=== PATIENT | male | born 1960 | race Caucasian/White ===

== ENCOUNTER 2019-03-21 00:39 | Emergency (ER) | payer OTHER ==
[2019-03-21] MEDS ORDERED: ONDANSETRON 4 MG/2 ML VIAL IVP STA (01:08)
[2019-03-21] MEDS ORDERED: PANTOPRAZOLE 40 MG/10 ML VIAL IVP STA (01:08)
[2019-03-21] MEDS ORDERED: SODIUM CHLORIDE 0.9% 1,000 ML IV STA (01:08)
[2019-03-21 01:22] LABS: Basophils % (A) 0 %; Eosinophils # (A) 0.1 k/uL (0-0.7); Eosinophils % (A) 1 %; HCT 37.8 % (39.0-53.0); HGB 12.5 gm/dL (13.0-17.5); Lymphocytes # (A) 1.2 k/uL (1.0-4.8); Lymphocytes % (A) 11 %; MCH 30.3 pg (25.0-35.0); MCHC 33.2 g/dL (31.0-37.0); MCV 91.2 fL (80.0-100.0); Mean Platelet Volume 6.8; Monocytes # (A) 0.6 k/uL (0-1.0); Monocytes % (A) 6 %; Neutrophils # (A) 9.2 k/uL (1.3-7.7); Neutrophils % (A) 82 %; Platelet Count 602 k/uL (150-450); RBC 4.14 m/uL (4.30-5.90); RDW 15.1 % (11.5-15.5); WBC 11.2 k/uL (3.8-10.6)
[2019-03-21 01:43] LABS: Albumin 2.1 g/dL (3.5-5.0); Calcium 7.7 mg/dL (8.4-10.2); Potassium 3.2 mmol/L (3.5-5.1); Total Bilirubin 0.3 mg/dL (0.2-1.3)
--- NOTE | 2019-03-21 01:43 | XR ---
EXAMINATION TYPE: XR chest 2V DATE OF EXAM: 03/21/2019 COMPARISON: NONE HISTORY: Abdominal pain TECHNIQUE: Frontal and lateral views of the chest are obtained. FINDINGS: Heart and mediastinum are normal. Lungs are clear of infiltrate. There is no pleural effus ion. Bony thorax is intact. Pulmonary vascularity is normal. IMPRESSION: Normal chest.
--- NOTE | 2019-03-21 01:46 | XR ---
EXAMINATION TYPE: XR KUB DATE OF EXAM: 03/21/2019 COMPARISON: NONE HISTORY: Abdominal pain TECHNIQUE: Single view FINDINGS: A single upright view was obtained. There is no evidence of free air. There are intestinal fluid levels in the mid abdomen. This could be some dilated small bowel loops. There is no sign of co nstipation. There are no pathologic calcifications over the kidneys. IMPRESSION: Distended gas-filled bowel in the mid abdomen that appears to be dilated small bowel with fluid levels. This could relate to partial obstruction or ileus. There is a relative lack of large b owel gas.
--- NOTE | 2019-03-21 02:33 | ED ---
General Adult HPI - General Chief complaint: Nausea/Vomiting/Diarrhea Stated complaint: Vomiting Time Seen by Provider: 03/21/19 00:55 Source: patient, family Mode of arrival: ambulatory Limitations: no limitations - History of Present Illness Initial comments: Patient is a 58-year-old male presenting to emergency Department with a chief complaint of nausea vomiting. Patient reports his been ongoing for about 2-3 months. He states the symptoms not related to by mouth intake. Patient also reports left upper quadrant abdominal pain and has a burning sensation. He states the pain comes and goes in waves. Patient denies any constipation or diarrhea. Patient denies any night sweats or chills. Patient denies any back pain, chest pain shortness of breath. Patient states that he is homeless and is looking for a warm bed and some food. Patient does report occasional alcohol intake and smoking marijuana. Patient denies hemoptysis or hematemesis. - Related Data Allergies Allergy/AdvReac Type Severity Reaction Status Date / Time No Known Allergies Allergy Verified 03/21/19 00:50 Review of Systems ROS Statement: Those systems with pertinent positive or pertinent negative responses have been documented in the HPI. ROS Other: All systems not noted in ROS Statement are negative. Past Medical History Past Medical History: Hearing Disorder / Deafness History of Any Multi-Drug Resistant Organisms: None Reported Past Surgical History: No Surgical Hx Reported Past Psychological History: No Psychological Hx Reported Smoking Status: Current every day smoker Past Alcohol Use History: Occasional Past Drug Use History: None Reported General Exam Limitations: no limitations General appearance: alert, in no apparent distress Head exam: Present: atraumatic, normocephalic, normal inspection Eye exam: Present: normal appearance, PERRL, EOMI Pupils: Present: normal accommodation ENT exam: Present: normal exam, normal oropharynx, mucous membranes dry, TM's normal bilaterally, normal external ear exam Neck exam: Present: normal inspection, full ROM Respiratory exam: Present: normal lung sounds bilaterally Cardiovascular Exam: Present: regular rate, normal rhythm, normal heart sounds GI/Abdominal exam: Present: soft, tenderness (Left upper quadrant). Absent: distended Extremities exam: Present: normal inspection, full ROM Back exam: Present: normal inspection, full ROM. Absent: CVA tenderness (R), CVA tenderness (L) Neurological exam: Present: alert, oriented X3 Psychiatric exam: Present: normal affect, normal mood Skin exam: Present: warm, dry, intact, normal color Course Vital Signs 03/21/19 03/21/19 00:44 03:23 Temperature 97.3 F L 97.8 F Pulse Rate 114 H 87 Respiratory 24 16 Rate Blood Pressure 100/65 112/68 O2 Sat by Pulse 100 99 Oximetry Medical Decision Making - Medical Decision Making Patient is a 58-year-old male presenting to emergency Department with a chief complaint of nausea and vomiting. On exam patient appears to be cold and is requesting a warm blanket. Patient reports he was outside for prolonged periods of time. He does have some left lower quadrant abdominal pain with a burning s ensation. This is increased over the last 1-2 days after he had nausea with some episodes of vomiting. Patient reports otherwise he is being without issues. He denies any night sweats fevers or chills. Patient is requesting some food. Patient given fluids, Protonix and Zofran. On reevaluation patient reports nausea has resolved. Patient was given fluid and not vomiting. Patient does have a white count I suspect this to be secondary to the vomiting. Patient is mildly hypokalemic which again suspect due to the vomiting. At this time patient will be discharged and given more information regarding homeless shelters. Strict return parameters were thoroughly discussed with patient was u nderstanding and agreeable. Case discussed with physician. - Lab Data Result diagrams: 03/21/19 01:15 03/21/19 01:15 Lab Results 03/21/19 03/21/19 Range/Units 01:15 01:15 WBC 11.2 H (3.8-10.6) k/uL RBC 4.14 L (4.30-5.90) m/uL Hgb 12.5 L (13.0-17.5) gm/dL Hct 37.8 L (39.0-53.0) % MCV 91.2 (80.0-100.0) fL MCH 30.3 (25.0-35.0) pg MCHC 33.2 (31.0-37.0) g/dL RDW 15.1 (11.5-15.5) % Plt Count 602 H (150-450) k/uL Neutrophils % 82 % Lymphocytes % 11 % Monocytes % 6 % Eosinophils % 1 % Basophils % 0 % Neutrophils # 9.2 H (1.3-7.7) k/uL Lymphocytes # 1.2 (1.0-4.8) k/uL Monocytes # 0.6 (0-1.0) k/uL Eosinophils # 0.1 (0-0.7) k/uL Basophils # 0.0 (0-0.2) k/uL Sodium 134 L (137-145) mmol/L Potassium 3.2 L (3.5-5.1) mmol/L Chloride 106 (98-107) mmol/L Carbon Dioxide 21 L (22-30) mmol/L Anion Gap 7 mmol/L BUN 22 H (9-20) mg/dL Creatinine 1.48 H (0.66-1.25) mg/dL Est GFR (CKD-EPI)AfAm 60 (>60 ml/min/1.73 sqM) Est GFR (CKD-EPI)NonAf 52 (>60 ml/min/1.73 sqM) Glucose 94 (74-99) mg/dL Calcium 7.7 L (8.4-10.2) mg/dL Total Bilirubin 0.3 (0.2-1.3) mg/dL AST 19 (17-59) U/L ALT 31 (21-72) U/L Alkaline Phosphatase 87 (38-126) U/L Total Protein 5.0 L (6.3-8.2) g/dL Albumin 2.1 L (3.5-5.0) g/dL Lipase 70 (23-300) U/L Disposition Clinical Impression: Nausea & vomiting Disposition: HOME SELF-CARE Condition: Stable Instructions (If sedation given, give patient instructions): Acute Nausea and Vomiting (ED) Additional Instructions: Please follow up with primary care. Please return to emergency department if symptoms worsen. Is patient prescribed a controlled substance at d/c from ED?: No Referrals: None,Stated [Primary Care Provider] - 1-2 days Time of Disposition: 03:45
[2019-03-21 03:24] VITALS: RESP 16; TEMP 97.8
[2019-03-21 04:43] VITALS: BP 124/79; PULSE 68
== END 2019-03-21 04:43 | disposition home or self-care (01) ==
LOC: EC 00:39
DX: R11.2 Nausea with vomiting, unspecified (principal); E87.6 Hypokalemia; R10.32 Left lower quadrant pain; R10.12 Left upper quadrant pain; F12.90 Cannabis use, unspecified, uncomplicated; H91.90 Unspecified hearing loss, unspecified ear; F17.200 Nicotine dependence, unspecified, uncomplicated; Z59.0 Homelessness
CPT/HCPCS: 36415; 80053; 83690; 85025; 71046; 74018; 99284; 96374; 96375; 96361 ×3; J2405; C9113

== ENCOUNTER 2019-03-21 07:31 | Observation (INO) | payer OTHER ==
[2019-03-21] MEDS ORDERED: SODIUM CHLORIDE 0.9% 500 ML 500 ML IV STA (07:40)
[2019-03-21] MEDS ORDERED: SODIUM CHLORIDE 0.9% 1,000 ML IV STA (07:40)
--- NOTE | 2019-03-21 07:45 | ED ---
General Adult HPI - General Chief complaint: Altered Mental Status Stated complaint: Altered Mental Time Seen by Provider: 03/21/19 07:31 Source: patient, EMS, RN notes reviewed, old records reviewed Mode of arrival: EMS Limitations: no limitations - History of Present Illness Initial comments: This is a 58-year-old male who was just released from this hospital approximately 2 or 3 hours prior to arrival was found crawling on the ground by a passerby. The patient apparently is homeless he was here earlier and discharged he was minimally responsive and shivering he was given Narcan with some questionable improvement in his mentation. He was brought in for evaluation no evidence trauma. No other modifying factors. Apparently patient got an argument with his roommate and was evicted earlier - Related Data Home Medications Medication Instructions Recorded Confirmed Aspirin EC [Ecotrin] 325 mg PO DAILY PRN 03/21/19 03/21/19 Allergies Allergy/AdvReac Type Severity Reaction Status Date / Time No Known Allergies Allergy Verified 03/21/19 11:09 Review of Systems ROS Statement: Those systems with pertinent positive or pertinent negative responses have been documented in the HPI. ROS Other: All systems not noted in ROS Statement are negative. Past Medical History Past Medical History: Hearing Disorder / Deafness History of Any Multi-Drug Resistant Organisms: None Reported Past Surgical History: No Surgical Hx Reported Past Psychological History: No Psychological Hx Reported Smoking Status: Current every day smoker Past Alcohol Use History: Occasional Past Drug Use History: None Reported General Exam - General Exam Comments Initial Comments: This a well-developed asthenic female who is awake alert still respond with shivering noted. Patient is demonstrating difficulty hearing Limitations: no limitations General appearance: alert, lethargic Head exam: Present: atraumatic, normocephalic, normal inspection Eye exam: Present: normal appearance, PERRL, EOMI. Absent: scleral icterus, conjunctival injection, periorbital swelling ENT exam: Present: mucous membranes dry, other (Poor dentition) Neck exam: Present: normal inspection, full ROM, other (No stridor JVD or bruits). Absent: tenderness, meningismus, lymphadenopathy Respiratory exam: Present: normal lung sounds bilaterally. Absent: respiratory distress, wheezes, rales, rhonchi, stridor Cardiovascular Exam: Present: regular rate, normal rhythm, normal heart sounds. Absent: systolic murmur, diastolic murmur, rubs, gallop, clicks GI/Abdominal exam: Present: soft, normal bowel sounds. Absent: distended, tenderness, guarding, rebound, rigid Rectal exam: Present: deferred Extremities exam: Present: full ROM, normal capillary refill, other (Nicotine stains noted on his fingers). Absent: tenderness, pedal edema, joint swelling, calf tenderness Back exam: Present: normal inspection Neurological exam: Present: alert, oriented X3, CN II-XII intact Psychiatric exam: Present: depressed, flat affect, suicidal ideation Skin exam: Present: warm, dry, intact, normal color. Absent: rash Course Vital Signs 03/21/19 03/21/19 03/21/19 07:33 08:22 09:00 Temperature 97.5 F L Pulse Rate 98 95 Respiratory 20 18 Rate Blood Pressure 115/93 113/71 100/70 O2 Sat by Pulse 100 100 100 Oximetry 03/21/19 03/21/19 09:30 10:31 Temperature Pulse Rate 91 Respiratory 18 Rate Blood Pressure 91/81 96/59 O2 Sat by Pulse 99 100 Oximetry Medical Decision Making - Medical Decision Making Patient did demonstrate evidence of dehydration and some mild hypothermia as well as urinary tract infection. Patient be admitted for IV therapy IV fluids. I did discuss the case with Dr. Henderson. - Lab Data Result diagrams: 03/21/19 07:48 03/21/19 07:48 Lab Results 03/21/19 03/21/19 03/21/19 Range/Units 07:48 07:48 07:48 WBC 13.7 H (3.8-10.6) k/uL RBC 3.88 L (4.30-5.90) m/uL Hgb 11.9 L (13.0-17.5) gm/dL Hct 36.2 L (39.0-53.0) % MCV 93.3 (80.0-100.0) fL MCH 30.7 (25.0-35.0) pg MCHC 32.9 (31.0-37.0) g/dL RDW 15.1 (11.5-15.5) % Plt Count 552 H (150-450) k/uL Neutrophils % 88 % Lymphocytes % 7 % Monocytes % 3 % Eosinophils % 0 % Basophils % 0 % Neutrophils # 12.1 H (1.3-7.7) k/uL Lymphocytes # 1.0 (1.0-4.8) k/uL Monocytes # 0.5 (0-1.0) k/uL Eosinophils # 0.0 (0-0.7) k/uL Basophils # 0.0 (0-0.2) k/uL Sodium 137 (137-145) mmol/L Potassium 4.1 (3.5-5.1) mmol/L Chloride 110 H (98-107) mmol/L Carbon Dioxide 17 L (22-30) mmol/L Anion Gap 10 mmol/L BUN 24 H (9-20) mg/dL Creatinine 1.54 H (0.66-1.25) mg/dL Est GFR (CKD-EPI)AfAm 57 (>60 ml/min/1.73 sqM) Est GFR (CKD-EPI)NonAf 49 (>60 ml/min/1.73 sqM) Glucose 69 L (74-99) mg/dL POC Glucose (mg/dL) (75-99) mg/dL POC Glu Utilization Review Specialist ID Calcium 7.7 L (8.4-10.2) mg/dL Magnesium 1.8 (1.6-2.3) mg/dL Total Bilirubin 0.4 (0.2-1.3) mg/dL AST 22 (17-59) U/L ALT 31 (21-72) U/L Alkaline Phosphatase 76 (38-126) U/L Ammonia 32 H (<30) umol/L Creatine Kinase 143 (55-170) U/L Total Protein 4.6 L (6.3-8.2) g/dL Albumin 1.9 L (3.5-5.0) g/dL Lipase 73 (23-300) U/L Urine Color Urine Appearance (Clear) Urine pH (5.0-8.0) Ur Specific [place] (1.001-1.035) Urine Protein (Negative) Urine Glucose (UA) (Negative) Urine Ketones (Negative) Urine Blood (Negative) Urine Nitrite (Negative) Urine Bilirubin (Negative) Urine Urobilinogen (<2.0) mg/dL Ur Leukocyte Esterase (Negative) Urine RBC (0-5) /hpf Urine WBC (0-5) /hpf Urine WBC Clumps (None) /hpf Urine Bacteria (None) /hpf Urine Mucus (None) /hpf Urine Opiates Screen (NotDetected) Ur Oxycodone Screen (NotDetected) Urine Methadone Screen (NotDetected) Ur Propoxyphene Screen (NotDetected) Ur Barbiturates Screen (NotDetected) U Tricyclic Antidepress (NotDetected) Ur Phencyclidine Scrn (NotDetected) Ur Amphetamines Screen (NotDetected) U Methamphetamines Scrn (NotDetected) U Benzodiazepines Scrn (NotDetected) Urine Cocaine Screen (NotDetected) U Marijuana (THC) Screen (NotDetected) Serum Alcohol <10 mg/dL 03/21/19 03/21/19 03/21/19 Range/Units 09:26 09:26 10:49 WBC (3.8-10.6) k/uL RBC (4.30-5.90) m/uL Hgb (13.0-17.5) gm/dL Hct (39.0-53.0) % MCV (80.0-100.0) fL MCH (25.0-35.0) pg MCHC (31.0-37.0) g/dL RDW (11.5-15.5) % Plt Count (150-450) k/uL Neutrophils % % Lymphocytes % % Monocytes % % Eosinophils % % Basophils % % Neutrophils # (1.3-7.7) k/uL Lymphocytes # (1.0-4.8) k/uL Monocytes # (0-1.0) k/uL Eosinophils # (0-0.7) k/uL Basophils # (0-0.2) k/uL Sodium (137-145) mmol/L Potassium (3.5-5.1) mmol/L Chloride (98-107) mmol/L Carbon Dioxide (22-30) mmol/L Anion Gap mmol/L BUN (9-20) mg/dL Creatinine (0.66-1.25) mg/dL Est GFR (CKD-EPI)AfAm (>60 ml/min/1.73 sqM) Est GFR (CKD-EPI)NonAf (>60 ml/min/1.73 sqM) Glucose (74-99) mg/dL POC Glucose (mg/dL) 73 L (75-99) mg/dL POC Glu Utilization Review Specialist ID Jezierski, [place] Calcium (8.4-10.2) mg/dL Magnesium (1.6-2.3) mg/dL Total Bilirubin (0.2-1.3) mg/dL AST (17-59) U/L ALT (21-72) U/L Alkaline Phosphatase (38-126) U/L Ammonia (<30) umol/L Creatine Kinase (55-170) U/L Total Protein (6.3-8.2) g/dL Albumin (3.5-5.0) g/dL Lipase (23-300) U/L Urine Color Light Red Urine Appearance Turbid (Clear) Urine pH 7.5 (5.0-8.0) Ur Specific [place] 1.015 (1.001-1.035) Urine Protein 2+ H (Negative) Urine Glucose (UA) Negative (Negative) Urine Ketones Negative (Negative) Urine Blood Small H (Negative) Urine Nitrite Negative (Negative) Urine Bilirubin Negative (Negative) Urine Urobilinogen <2.0 (<2.0) mg/dL Ur Leukocyte Esterase Large H (Negative) Urine RBC >182 H (0-5) /hpf Urine WBC >182 H (0-5) /hpf Urine WBC Clumps Many H (None) /hpf Urine Bacteria Many H (None) /hpf Urine Mucus Few H (None) /hpf Urine Opiates Screen Not Detected (NotDetected) Ur Oxycodone Screen Not Detected (NotDetected) Urine Methadone Screen Not Detected (NotDetected) Ur Propoxyphene Screen Not Detected (NotDetected) Ur Barbiturates Screen Not Detected (NotDetected) U Tricyclic Antidepress Not Detected (NotDetected) Ur Phencyclidine Scrn Not Detected (NotDetected) Ur Amphetamines Screen Not Detected (NotDetected) U Methamphetamines Scrn Not Detected (NotDetected) U Benzodiazepines Scrn Not Detected (NotDetected) Urine Cocaine Screen Not Detected (NotDetected) U Marijuana (THC) Screen Not Detected (NotDetected) Serum Alcohol mg/dL Disposition Clinical Impression: Urinary tract infection, Renal insufficiency, Dehydration, Hypothermia, Hearing deficit Disposition: ADMITTED IP TO THIS HOSP Condition: Fair Referrals: Werner Menendez, PAC [PHYSICIAN [facility] DEVELOPER] - 1-2 days
[2019-03-21 08:11] LABS: Basophils % (A) 0 %; Eosinophils % (A) 0 %; HCT 36.2 % (39.0-53.0); HGB 11.9 gm/dL (13.0-17.5); Lymphocytes % (A) 7 %; MCH 30.7 pg (25.0-35.0); MCHC 32.9 g/dL (31.0-37.0); MCV 93.3 fL (80.0-100.0); Mean Platelet Volume 7.4; Monocytes # (A) 0.5 k/uL (0-1.0); Monocytes % (A) 3 %; Neutrophils # (A) 12.1 k/uL (1.3-7.7); Neutrophils % (A) 88 %; Platelet Count 552 k/uL (150-450); RBC 3.88 m/uL (4.30-5.90); RDW 15.1 % (11.5-15.5); WBC 13.7 k/uL (3.8-10.6)
[2019-03-21 08:14] LABS: ALT 31 U/L (21-72); AST 22 U/L (17-59); African American GFR (CKD) 57 (>60 ml/min/1.73 sqM); Albumin 1.9 g/dL (3.5-5.0); Alcohol <10 mg/dL; Alkaline Phosphatase 76 U/L (38-126); Anion Gap 10 mmol/L; Blood Urea Nitrogen 24 mg/dL (9-20); Calcium 7.7 mg/dL (8.4-10.2); Carbon Dioxide 17 mmol/L (22-30); Chloride 110 mmol/L (98-107); Creatine Kinase 143 U/L (55-170); Glucose 69 mg/dL (74-99); Magnesium 1.8 mg/dL (1.6-2.3); Non-African American GFR(CKD) 49 (>60 ml/min/1.73 sqM); Potassium 4.1 mmol/L (3.5-5.1); Sodium 137 mmol/L (137-145); Total Bilirubin 0.4 mg/dL (0.2-1.3); Total Protein 4.6 g/dL (6.3-8.2)
[2019-03-21 09:48] LABS: Appearance,Urine Turbid (Clear); Bacteria,Urine Many /hpf; Bilirubin,Urine Negative (Negative); Blood,Urine Small (Negative); Color,Urine Light Red; Glucose,Urine (UA) Negative (Negative); Ketones,Urine Negative (Negative); Leukocyte Esterase,Urine Large (Negative); Mucus,Urine Few /hpf; Nitrite,Urine Negative (Negative); PH, Urine 7.5 (5.0-8.0); Protein,Urine 2+ (Negative); RBC,Urine >182 /hpf (0-5); Specific Gravity,Urine 1.015 (1.001-1.035); Urobilinogen,Urine <2.0 mg/dL (<2.0); WBC,Urine >182 /hpf (0-5)
[2019-03-21 09:50] LABS: Amphetamine Screen,Urine Not Detected (NotDetected); Barbiturate Screen,Urine Not Detected (NotDetected); Benzodiazepines Screen,Urine Not Detected (NotDetected); Cocaine Screen,Urine Not Detected (NotDetected); Methadone Screen, Urine Not Detected (NotDetected); Opiate Screen,Urine Not Detected (NotDetected); Oxycodone Screen, Urine Not Detected (NotDetected); Phencyclidine Screen,Urine Not Detected (NotDetected); Tricyclic Antidepressant,Urine Not Detected (NotDetected); Urn Cannabinoid Scrn Not Detected (NotDetected)
[2019-03-21 10:50] LABS: Glucose,Whole Blood 73 mg/dL (75-99)
[2019-03-21] MEDS ORDERED: ACETAMINOPHEN TAB 325 MG TAB PO PRN (11:05)
[2019-03-21] MEDS ORDERED: ONDANSETRON 4 MG/2 ML VIAL IVP PRN (11:05)
[2019-03-21] MEDS ORDERED: cefTRIAXone IN SWFI 1,000 MG/10 ML SYRINGE IVP STA (11:17)
[2019-03-21] MEDS ORDERED: NALOXONE 0.4 MG/ML 1 ML VIAL IV PRN (11:19)
--- NOTE | 2019-03-21 12:26 | P.HPIM ---
History of Present Illness H&P Date: 03/21/19 The patient is a hard of hearing 58-year-old male that presented to the ER after being found crawling on the ground by a passerby. The patient reports that he had fallen but had been too weak to get up, the patient reported that he was homeless and recently been kicked out of his current living situation by his roommate. The patient has reported URI symptoms such as runny nose sinus drainage and also reported on intermittently productive cough over the last 2 weeks , he also has had issues with reflux and vomiting, the patient had earlier been seen in the ER where he presented for nausea and vomiting and was found to be hypokalemic. He denied any chest pain or shortness of breath, denied any fevers, but reported ongoing chills and feeling cold, he denied any dysuria or flank pain but reported decreased oral intake, and that his urine was increasingly dark. In the ER he had a white count of 13.9 hemoglobin of 12 platelet of 552, creatinine 1.54, serum bicarb 17, serum lipase 73 total albumin 1.9. urinalysis large leukoesterase positive, urine WBCs greater than 182, urine bacteria. Chest x-ray was normal, EKG showed sinus rhythm with PACs without suggestion of acute ischemia. UDS was negative Past Medical History Past Medical History: Hearing Disorder / Deafness History of Any Multi-Drug Resistant Organisms: None Reported Past Surgical History: No Surgical Hx Reported Past Psychological History: No Psychological Hx Reported Smoking Status: Current every day smoker Past Alcohol Use History: Occasional Past Drug Use History: None Reported Medications and Allergies Home Medications Medication Instructions Recorded Confirmed Type Aspirin EC [Ecotrin] 325 mg PO DAILY PRN 03/21/19 03/21/19 History Allergies Allergy/AdvReac Type Severity Reaction Status Date / Time No Known Allergies Allergy Verified 03/21/19 11:09 Physical Exam Vitals: Vital Signs Temp Pulse Resp BP Pulse Ox 03/21/19 10:31 91 18 96/59 100 03/21/19 09:30 91/81 99 03/21/19 09:00 100/70 100 03/21/19 08:22 97.5 F L 95 18 113/71 100 03/21/19 07:33 98 20 115/93 100 Intake and Output 03/20/19 03/21/19 03/21/19 22:59 06:59 14:59 Other: Weight 54.431 kg Constitutional: Malnourished, hard of hearing, conversant , pleasant cold to touch hypothermic, Eyes: Anicteric sclerae, moist conjunctiva, no lid-lag, PERRLA ENMT: NC/AT,Oropharynx clear, no erythema, exudates, poor oral dentition Neck:Supple, FROM, no masses, or JVD, No carotid bruits; No thyromegaly Lungs: Clear to auscultation, Clear to percussion, Normal respiratory effort, no accessory muscle use Cardiovascular: Heart regular in rate and rhythm, No murmurs, gallops, or rubs no peripheral edema Abdominal: Soft Nontender, nom distended, no guarding, no rebound or rigidity, Normoactive bowel sounds No hepatomegaly, No splenomegaly, No palpable mass No abdominal wall hernia noted Skin: Normal temperature, tone, texture, turgor, No induration No subcutaneous nodules, No rash, lesions, No ulcers Extremities:No digital cyanosis No clubbing, Pedal pulses intact and symmetrical Radial pulses intact and symmetrical Normal gait and station, No calf tenderness Psychiatric: Alert and oriented to person, place and time, Appropriate affect Intact judgement Neuro: Muscles Strength 5/5 in all 4 extremities, Sensation to light touch grossly present throughout, Cranial nerves II-XII grossly intact. No focal sensory deficits Results CBC & Chem 7: 03/21/19 07:48 03/21/19 07:48 Labs: Abnormal Lab Results - Last 24 Hours (Table) 03/21/19 03/21/19 03/21/19 Range/Units 07:48 07:48 07:48 WBC 13.7 H (3.8-10.6) k/uL RBC 3.88 L (4.30-5.90) m/uL Hgb 11.9 L (13.0-17.5) gm/dL Hct 36.2 L (39.0-53.0) % Plt Count 552 H (150-450) k/uL Neutrophils # 12.1 H (1.3-7.7) k/uL Chloride 110 H (98-107) mmol/L Carbon Dioxide 17 L (22-30) mmol/L BUN 24 H (9-20) mg/dL Creatinine 1.54 H (0.66-1.25) mg/dL Glucose 69 L (74-99) mg/dL POC Glucose (mg/dL) (75-99) mg/dL Calcium 7.7 L (8.4-10.2) mg/dL Ammonia 32 H (<30) umol/L Total Protein 4.6 L (6.3-8.2) g/dL Albumin 1.9 L (3.5-5.0) g/dL Urine Protein (Negative) Urine Blood (Negative) Ur Leukocyte Esterase (Negative) Urine RBC (0-5) /hpf Urine WBC (0-5) /hpf Urine WBC Clumps (None) /hpf Urine Bacteria (None) /hpf Urine Mucus (None) /hpf 03/21/19 03/21/19 Range/Units 09:26 10:49 WBC (3.8-10.6) k/uL RBC (4.30-5.90) m/uL Hgb (13.0-17.5) gm/dL Hct (39.0-53.0) % Plt Count (150-450) k/uL Neutrophils # (1.3-7.7) k/uL Chloride (98-107) mmol/L Carbon Dioxide (22-30) mmol/L BUN (9-20) mg/dL Creatinine (0.66-1.25) mg/dL Glucose (74-99) mg/dL POC Glucose (mg/dL) 73 L (75-99) mg/dL Calcium (8.4-10.2) mg/dL Ammonia (<30) umol/L Total Protein (6.3-8.2) g/dL Albumin (3.5-5.0) g/dL Urine Protein 2+ H (Negative) Urine Blood Small H (Negative) Ur Leukocyte Esterase Large H (Negative) Urine RBC >182 H (0-5) /hpf Urine WBC >182 H (0-5) /hpf Urine WBC Clumps Many H (None) /hpf Urine Bacteria Many H (None) /hpf Urine Mucus Few H (None) /hpf Assessment and Plan Assessment: Sepsis Possible urinary tract infection Acute kidney injury with metabolic acidosis Hypothermia severe calorie malnutrition Smoking Hearing-impaired Plan: The patient is admitted anticipated greater than 2 midnight stay with concern for possible sepsis due to UTI in the patient and presented here after being found down and was weak and unable to get up. He's also have a mild leukocytosis of 13.7 and a grossly abnormal urinalysis he also has acute kidney injury likely prerenal due to dehydration, he was given a liter normal saline bolus and started on empiric IV antibiotics with Rocephin, will check a CT of his head as there were reports of confusion Despite the patient being oriented 3 on my physical exam. We'll order a chest x-ray, blood cultures and urine culture. We'll resume him on high protein diet given the patient's severe protein calorie malnutrition and consult dietitian, we'll also consult PTOT for the patient's weakness. Instructed the ER to place the patient in the bear hugger as he was cold to touch and was hypothermic. will continue to follow his clinical course prophylaxis heparin and Protonix CODE STATUS full code Anticipated discharge: 2-[address]: penitentiary or homeless nursing home Discussed care with the: Patient an ER physician
--- NOTE | 2019-03-21 12:34 | CT ---
EXAMINATION TYPE: CT brain wo con DATE OF EXAM: 03/21/2019 COMPARISON: NONE HISTORY: confusion CT DLP: 1070.4 mGycm Automated exposure control for dose reduction was used. FINDINGS: There are mild, generalized changes of sulcal prominence and ventriculomegaly, compatible with atroph ic change. There is diffuse periventricular white matter lucency, compatible with chronic white matte r ischemic change. There is no acute focal lesion, mass effect or midline shift identified. I do not see evidence of intracranial blood. Visualized portions of the paranasal sinuses and mastoids are clear. The bony calvarium is intact. IMPRESSION: 1. NO ACUTE INTRACRANIAL ABNORMALITY. 2. MILD ATROPHIC CHANGE. 3. CHRONIC WHITE MATTER ISCHEMIC
--- NOTE | 2019-03-21 12:47 | XR ---
EXAMINATION TYPE: XR chest 1V DATE OF EXAM: 03/21/2019 HISTORY: sepsis. REFERENCE: Previous study dated 03/21/2019. FINDINGS: Lung volumes are prominent. There are mild increased markings, unchanged from previous. The heart is not enlarged. Pleural spaces are clear. IMPRESSION: PLEASE CORRELATE FOR COPD.
[2019-03-21] MEDS: HEPARIN SODIUM,PORCINE 5,000 UNIT/ML 1 ML VIAL SQ SCH (20:34)
[2019-03-22] MEDS: HEPARIN SODIUM,PORCINE 5,000 UNIT/ML 1 ML VIAL SQ SCH (07:52)
[2019-03-22] MEDS: PANTOPRAZOLE 40 MG TABLET PO SCH (07:52)
[2019-03-22 09:22] LABS: Calcium 7.6 mg/dL (8.4-10.2); Potassium 3.2 mmol/L (3.5-5.1)
[2019-03-22 09:35] LABS: Basophils % (A) 0 %; Eosinophils # (A) 0.1 k/uL (0-0.7); Eosinophils % (A) 1 %; HGB 11.6 gm/dL (13.0-17.5); Lymphocytes # (A) 1.1 k/uL (1.0-4.8); Lymphocytes % (A) 13 %; MCV 93.9 fL (80.0-100.0); Mean Platelet Volume 7.3; Monocytes # (A) 0.3 k/uL (0-1.0); Monocytes % (A) 4 %; Neutrophils # (A) 7.2 k/uL (1.3-7.7); Neutrophils % (A) 82 %; Platelet Count 530 k/uL (150-450); RBC 3.73 m/uL (4.30-5.90); RDW 15.1 % (11.5-15.5); WBC 8.8 k/uL (3.8-10.6)
[2019-03-22] MEDS ORDERED: POTASSIUM CHLORIDE ER 20 MEQ TAB.ER PO STA (11:03)
[2019-03-22 11:09] VITALS: BMI 16.6
--- NOTE | 2019-03-22 14:42 | P.CN ---
Psychiatric Consult - . Consult date: 03/22/19 Consult:: IDENTIFYING DATA: This patient is a 58-year-old single male admitted to medicine service for evaluation of confusion and weakness. The hospitalist consult to psychiatry for evaluation of visual and auditory hallucinations. HISTORY OF PRESENT ILLNESS: I reviewed the medical record and attempted to interview the patient. He has hearing impaired and was very difficult to interview. He alleged that he came to Hospital because he was "feeling weak." He gave inconsistent responses to questions. Although the record indicates that he is homeless, he alleged that he owns a home. He does not work and alleges he does not receive Social Security but has an income. He talked about "owning a bank." He also talked about having been treated for alcohol problems in the past but also denies that he uses alcohol. PAST PSYCHIATRIC HISTORY: He denies past psychiatric hospitalizations. I spoke with the community mental health liaison from the psychiatric unit. According to their record she was admitted to our unit in August 2005. We were unable to obtain records from this hospitalization. He did not keep his appointments with community hospital and they have no assessment information. The records only indicate that he has history of alcohol use problems. He denied that he been treated by mental health professionals such as a therapist, counselor, social media marketer, psychologist or psychiatrist. PAST MEDICAL HISTORY: Hearing impairment ALLERGIES: NO KNOWN DRUG ALLERGIES. SUBSTANCE USE HISTORY: He apparently has a history of alcohol use disorder but during our interview he denied use of alcohol and gave a inconsistent history of alcohol use and alcohol use problems. FAMILY PSYCHIATRIC/SUBSTANCE USE HISTORY: He would not talk about his family history. SOCIAL HISTORY: His born in [place] allegedly to an intact family. He has 1 sister. 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 He is currently unemployed. He is single and would not answer whether he has children. MENTAL STATUS EXAM: He presented as a thin disheveled appearing male with long unkempt hair. He is laying in bed. He did not cooperate with interview. He made eye contact and had difficulty concentrating interview. The severity was hearing impairment interfered with him understanding questions. He had a blunted but bright facial expression. He was alert and oriented to person, place and time. He showed psychomotor retardation but no abnormal movements. His speech was spontaneous with decreased rate but normal volume. His affect was stable and appropriate. He denied suicidal ideation, wishes and homicidal ideation. He was guarded but did not expressed feeling clear paranoid ideation or ideas reference. He alleged that he owes several ba s medical source of his income. He denied auditory, visual or olfactory hallucinations. I attempted to perform a formal mental status exam. He knew the month and the year. He would not cooperate with the remainder of the examination. He was essentially untestable. IMPRESSIONS:He is a 58-year-old man with a moderately severe hearing impairment. The hospitalist consult psychiatry to evaluate him for auditory or visual hallucinations. He was difficult interview due to the hearing impairment. He is guarded and gave contradictory answers to questions. He would not cooperate with much of the examination. He expressed some grandiosity but did not described paranoid delusions and did not appear to be responding to internal stimuli. I suspect that he is cognitively impaired and most likely has a history of alcohol use problems. He appears to be a vulnerable adult but does not require acute psychiatric services at this time. DIAGNOSIS: Acute confusional state, rule out developmental disability, rule out neurocognitive disorder, alcohol use disorder (provisional) PLAN: There is no indication for transfer psychiatric in this time. Social work to identify a family or friend who may provide additional information to clarify his history. Thank you for this consult. 03/22/19 14:16
--- NOTE | 2019-03-22 19:03 | P.PN ---
Subjective Principal diagnosis: Reason for admission: Generalized weakness, UTI, dehydration, acute kidney injury Chart was reviewed and patient was interviewed and examined. Patient is a poor historian and very hard of hearing his history providing is limiting Patient is homeless and apparently he was admitted with generalized weakness fou nd to have UTI acute renal failure and was started on ceftriaxone IV fluids. Currently patient was found ambulating in the room went to the bathroom by himself took shower came back to the bed. He did not have any significant complaints. He states that his chest pain shortness of breath headache or numbness in his feet or any discomfort. No diarrhea nausea or vomiting. He appears very thin and emaciated Evaluation included CT of the brain showed chronic ischemic changes, chest x- ray, basic blood work that was notable for massive pyuria hematuria elevated creatinine. His albumin of only 1.9. Per nursing staff and his roommate patient been talking to himself and and possibly. 2-2 invisible people in the room. When asked patient states that he does not have any visual or audible hallucinations. He doesn't appear frightened or scared. Objective - Vital Signs Vital signs: Vital Signs Temp 98.0 F 03/22/19 05:15 Pulse 85 03/22/19 05:15 Resp 18 03/22/19 05:15 BP 108/69 03/22/19 05:15 Pulse Ox 99 03/22/19 05:15 Intake & Output 03/21/19 03/22/19 03/22/19 18:59 06:59 18:59 Intake Total 540 1900 Balance 540 1900 Weight 54.431 kg Intake: Oral 540 1900 Other: # Voids 4 - Constitutional General appearance: Present: disheveled, no acute distress, thin - EENT EENT Comment(s): Patient has some gaze provoked Most in eye oscillations looking in both sides. No diplopia no nystagmus at rest. Eyes: Present: PERRLA, poor dentition ENT: Present: hard of hearing, normal oropharynx - Neck Neck: Absent: lymphadenopathy - Respiratory Respiratory: right: CTA - Cardiovascular Heart sounds: normal: S1, S2 - Gastrointestinal General gastrointestinal: Present: normal bowel sounds, soft. Absent: organomegaly, tenderness - Neurologic Neurologic Comment(s): General nurse and examination is notable for nystagmus as mentioned above. Extraocular movements are otherwise intact. Nystagmus is gaze evoked. He denies any facial asymmetry and tongue protrudes in midline speech is fluent. He is very hard of hearing. He does complain of tinnitus. Motor strength is 5 out of 5 in upper and lower extremities and there is no rigidity or tremor or involuntary movements. Patellar reflexes are 1+ and symmetrical. There is no ankle clonus. Reflexes blunted bilateral. He possibly has diminished sensitivity to light touch and pinprick in lower extremities. Cerebellar: Finger to nose and heel to smith are intact and there is no vertigo and Romberg is negative Neurologic: Absent: focal deficits - Labs CBC & Chem 7: 03/22/19 08:30 12 08:30 Labs: Abnormal Lab Results - Last 24 Hours (Table) 03/22/19 03/22/19 Range/Units 08:30 08:30 RBC 3.73 L (4.30-5.90) m/uL Hgb 11.6 L (13.0-17.5) gm/dL Hct 35.0 L (39.0-53.0) % Plt Count 530 H (150-450) k/uL Potassium 3.2 L (3.5-5.1) mmol/L Chloride 114 H (98-107) mmol/L Carbon Dioxide 21 L (22-30) mmol/L Calcium 7.6 L (8.4-10.2) mg/dL Microbiology - Last 24 Hours (Table) 03/21/19 09:26 Urine Culture - Preliminary Urine,Voided - Imaging and Cardiology CT Scan - head: report reviewed, image reviewed Assessment and Plan Assessment: 1. Acute kidney injury and dehydration next the patient received hydration and creatinine output has improved electrolytes stable X 2. Urinary tract infection Possible urinary hematuria Treated with ceftriaxone Urine cultures no growth to date Check postvoiding residuals Patient largely asymptomatic without any CVA tenderness febrile and viable cell count normal today, no imaging for now Repeat UA once infection treated to assure clearance of pyuria and RBCs 3. Severe protein calorie malnutrition With this muscle weight and low albumin Dietitian to evaluate Doing possibility please evoked nystagmus and no presence of any medications for this we'll check his B12, thiamine and V6 level #4. Possible gaze evoked nystagmus CT of the head shows chronic ischemic changes Patient does not have any other focal neurological deficits We'll check vitamin levels An 80 medications Denies drugs or alcohol use although this cannot be completely excluded May consider MRI 5. Debility PTOT Will need placement 6. Possible hallucinations Patient denies any auditory or visual hallucinations Even at present currently not frightening for the patient hence may not needs psychiatry consultation We will continue to observe and reevaluate in this We will need to more insight and improved his past medical history possible
[2019-03-22 22:53] VITALS: RESP 18
[2019-03-23] MEDS: HEPARIN SODIUM,PORCINE 5,000 UNIT/ML 1 ML VIAL SQ SCH ×2 (01:08→08:50)
[2019-03-23 05:03] VITALS: BP 106/75; PULSE 61; TEMP 96.9
[2019-03-23] MEDS: PANTOPRAZOLE 40 MG TABLET PO SCH (08:50)
--- NOTE | 2019-03-23 09:45 | P.DS ---
Providers Date of admission: 03/21/19 11:28 Expected date of discharge: 03/23/19 Attending physician: Eugenio Henderson MD Consults: 03/22/19 13:07 Consult Physician Routine Consulting Provider: Milton John Consult Reason/Comments: visual/auditory hallucinations Do you want consulting provider notified?: Already Contacted Primary care physician: Stated None Hospital Course: 58-year-old male that presented to the ER after being found crawling on the ground by a passerby. Apparently patient had fallen but had been too weak to get up, the patient reported that he was homeless and recently been kicked out of his current living situation by his roommate. The patient has reported URI symptoms including runny nose sinus drainage and also reported intermittently productive cough over the last 2 weeks , he also has had issues with reflux and vomiting, the patient had earlier been seen in the ER where he presented for nausea and vomiting and was found to be hypokalemic. He denied any chest pain or shortness of breath, denied any fevers, but reported ongoing chills and feeling cold, he denied any dysuria or flank pain but reported decreased oral intake, and that his urine was increasingly dark. In the ER he had a white count of 13.9 hemoglobin of 12 platelet of 552, creatinine 1.54, serum bicarb 17, serum lipase 73 total albumin 1.9. urinalysis large leukoesterase positive, urine WBCs greater than 182, urine bacteria. Chest x-ray was normal, EKG showed sinus rhythm with PACs without suggestion of acute ischemia. UDS was negative, alcohol negative. Patient was admitted, started on IV fluids, was started on ceftriaxone for UTI and sepsis. Blood cultures obtained and remained negative until the time of discharge. Urine cultures growing gram-negative bacilli at the time of this report. Patient has remained afebrile throughout the hospitalization. Potassium was replaced. Due to questionable hallucinations he was seen by psychiatry who did not recommend inpatient psychiatric admission. Case was discussed with care management in regards to the patient's homelessness, care management who advised that he will be given some resources on housing in the community. Time for discharge 35 minutes Patient Condition at Discharge: Fair Plan - Discharge Summary Discharge Rx Participant: No New Discharge Prescriptions: New Cefdinir [Omnicef] 300 mg PO Q12HR 7 Days #14 capsule Acetaminophen Tab [Tylenol] 650 mg PO Q6HR PRN tab PRN Reason: Mild Pain Or Fever > 100.5 Continue Aspirin EC [Ecotrin] 325 mg PO DAILY PRN PRN Reason: Pain Discharge Medication List Aspirin EC [Ecotrin] 325 mg PO DAILY PRN 03/21/19 [History] Acetaminophen Tab [Tylenol] 650 mg PO Q6HR PRN tab 03/23/19 [Rx] Cefdinir [Omnicef] 300 mg PO Q12HR 7 Days #14 capsule 03/23/19 [Rx] Follow up Appointment(s)/Referral(s): Werner Menendez, CASEY [PHYSICIAN EVENING OR NIGHT NURSE SUPERVISOR] - 1-2 days
== END 2019-03-23 12:24 | disposition home or self-care (01) ==
LOC: EC 07:31 → 4MS4W 11:28
PROVIDERS: ADMIT Family Medicine; ATTEND Family Medicine
DX: N39.0 Urinary tract infection, site not specified (principal); E86.0 Dehydration; T68.XXXA Hypothermia, initial encounter; E43 Unspecified severe protein-calorie malnutrition; N17.9 Acute kidney failure, unspecified; E87.2 Acidosis; H55.00 Unspecified nystagmus; H91.90 Unspecified hearing loss, unspecified ear; I49.1 Atrial premature depolarization; B96.89 Other specified bacterial agents as the cause of diseases classified elsewhere; R41.0 Disorientation, unspecified; I67.82 Cerebral ischemia; G31.9 Degenerative disease of nervous system, unspecified; R31.9 Hematuria, unspecified; H93.19 Tinnitus, unspecified ear; R53.81 Other malaise; F17.200 Nicotine dependence, unspecified, uncomplicated; Z59.0 Homelessness; Z79.82 Long term (current) use of aspirin; X31.XXXA Exposure to excessive natural cold, initial encounter
CPT/HCPCS: 96372 ×2; 96376; 96361; 96365; 99285; 36415; 93005; 97161; 92523; 84207; 84425; 80053; 80048; 82607; 82140; 82550; 83605; 83690; 83735; 85025 ×2; 81001; 87040; 80306; 80320; 87086; 87077; 87186; 71045; 70450; G0378 ×3; J1644 ×2; J0696 ×2

== ENCOUNTER 2019-04-16 21:27 | Inpatient (IN) | payer OTHER ==
[2019-04-16] MEDS ORDERED: SODIUM CHLORIDE 0.9% 1,000 ML IV STA (21:43)
--- NOTE | 2019-04-16 21:44 | ED ---
Weakness HPI - General Source: patient, EMS Mode of arrival: EMS Limitations: no limitations <Randell Baez - Last Filed: 04/16/19 21:44> <Laxmi Riddle - Last Filed: 04/18/19 04:41> - General Chief complaint: Nausea/Vomiting/Diarrhea Stated complaint: Weakness - History of Present Illness Initial comments: Marco A is a 58-year-old male who is brought to the ER today for evaluation of nausea, vomiting, dehydration and altered mental status. On arrival the patient is noted to be vomiting liquid vomitus. He is in no acute pain. He offers no meaningful history. When asked about his symptoms the patient states that he got lethal injection and he went to his legs. (Laxmi Riddle) - Related Data Home Medications Medication Instructions Recorded Confirmed Unable To Assess [Unable to Assess] 04/17/19 04/17/19 Allergies Allergy/AdvReac Type Severity Reaction Status Date / Time No Known Allergies Allergy Verified 04/17/19 09:56 Review of Systems ROS Other: All systems not noted in ROS Statement are negative. <Randell Baez - Last Filed: 04/16/19 21:44> ROS Other: All systems not noted in ROS Statement are negative. <Laxmi Riddle - Last Filed: 04/18/19 04:41> ROS Statement: Those systems with pertinent positive or pertinent negative responses have been documented in the HPI. Past Medical History Past Medical History: Chest Pain / Angina, Hearing Disorder / Deafness Additional Past Medical History / Comment(s): patient a poor historian History of Any Multi-Drug Resistant Organisms: None Reported Past Surgical History: No Surgical Hx Reported, Cholecystectomy Additional Past Surgical History / Comment(s): patient states he had a procedure in the 80's on his stomach because "food would get stuck" Past Anesthesia/Blood Transfusion Reactions: No Reported Reaction Additional Past Anesthesia/Blood Transfusion Reaction / Comment(s): patient poor historian Past Psychological History: No Psychological Hx Reported Smoking Status: Current every day smoker Past Alcohol Use History: Occasional Past Drug Use History: None Reported <Randell Baez - Last Filed: 04/16/19 21:44> General Exam Limitations: no limitations <Randell Baez - Last Filed: 04/16/19 21:44> <Laxmi Riddle - Last Filed: 04/18/19 04:41> - General Exam Comments Initial Comments: Physical Exam GENERAL: Disheveled appearance HENT: Normocephalic, Atraumatic. EYES: PERRL, EOMI PULMONARY: Unlabored respirations. No audible rales rhonchi or wheezing was noted. CARDIOVASCULAR: Tachycardic regular ABDOMEN: Normoactive bowel sounds, no distention, no tenderness to palpation SKIN: Skin is dry and pale : Deferred NEUROLOGIC: Oriented to self only Seems to be hallucinating Moving all extremities MUSCULOSKELETAL: Diffuse atrophy 2+ pitting edema bilateral lower extremities PSYCHIATRIC: Appears to be hallucinating (Laxmi Riddle) Course Vital Signs 04/16/19 04/16/19 04/16/19 21:30 23:46 23:52 Temperature 97.8 F Pulse Rate 56 L 89 Pulse Rate [ Pulse Oximetery ] Respiratory 18 18 Rate Blood Pressure 85/67 88/57 Blood Pressure [Right Arm] O2 Sat by Pulse 99 98 98 Oximetry 04/17/19 04/17/19 00:50 01:08 Temperature 98.4 F Pulse Rate 78 Pulse Rate [ 98 Pulse Oximetery ] Respiratory 18 17 Rate Blood Pressure 90/55 Blood Pressure 92/57 [Right Arm] O2 Sat by Pulse 98 99 Oximetry EKG Findings - EKG Comments: EKG Findings:: EKG was obtained due to tachycardia, EKG was obtained at 2229, rate is 104 rhythm is sinus tachycardia, normal axis, normal intervals, OK 128, QRS 92, QTc is [address] elevations or depressions no evidence of acute ischemia or infarction. <Laxmi Riddle - Last Filed: 04/18/19 04:41> Medical Decision Making - Lab Data Result diagrams: 04/17/19 05:50 04/17/19 05:50 <Laxmi Riddle - Last Filed: 04/18/19 04:41> - Medical Decision Making Patient was seen and evaluated upon arrival history and physical exam were obtained from patient and review of medical record as patient seems to be altered at this time with no focal neurologic deficits Labs and IVF ordered Patient received IV resuscitation. BP remained low but patient awake, alert, still seems to be hallucinating Patient to be admitted for IVF, psych consulted for evaluation (Laxmi Riddle) - Lab Data Lab Results 04/16/19 04/16/19 04/16/19 Range/Units 22:12 22:12 22:12 WBC 10.1 (3.8-10.6) k/uL RBC 4.27 L (4.30-5.90) m/uL Hgb 13.1 (13.0-17.5) gm/dL Hct 40.2 (39.0-53.0) % MCV 94.1 (80.0-100.0) fL MCH 30.6 (25.0-35.0) pg MCHC 32.5 (31.0-37.0) g/dL RDW 15.7 H (11.5-15.5) % Plt Count 365 (150-450) k/uL Neutrophils % 85 % Lymphocytes % 11 % Monocytes % 3 % Eosinophils % 1 % Basophils % 0 % Neutrophils # 8.6 H (1.3-7.7) k/uL Lymphocytes # 1.1 (1.0-4.8) k/uL Monocytes # 0.3 (0-1.0) k/uL Eosinophils # 0.1 (0-0.7) k/uL Basophils # 0.0 (0-0.2) k/uL PT (9.0-12.0) sec INR (<1.2) APTT (22.0-30.0) sec Sodium 134 L (137-145) mmol/L Potassium 3.3 L (3.5-5.1) mmol/L Chloride 108 H (98-107) mmol/L Carbon Dioxide 23 (22-30) mmol/L Anion Gap 3 mmol/L BUN 23 H (9-20) mg/dL Creatinine 1.07 (0.66-1.25) mg/dL Est GFR (CKD-EPI)AfAm 89 (>60 ml/min/1.73 sqM) Est GFR (CKD-EPI)NonAf 77 (>60 ml/min/1.73 sqM) Glucose 90 (74-99) mg/dL Plasma Lactic Acid Angus 1.6 (0.7-2.0) mmol/L Calcium 7.4 L (8.4-10.2) mg/dL Phosphorus 3.2 (2.5-4.5) mg/dL Magnesium 1.6 (1.6-2.3) mg/dL Total Bilirubin 0.6 (0.2-1.3) mg/dL AST 30 (17-59) U/L ALT 27 (4-49) U/L Alkaline Phosphatase 94 (38-126) U/L Creatine Kinase 76 (55-170) U/L Troponin I (0.000-0.034) ng/mL Total Protein 4.2 L (6.3-8.2) g/dL Albumin 1.6 L (3.5-5.0) g/dL TSH 8.840 H (0.465-4.680) mIU/L 04/16/19 04/16/19 Range/Units 22:12 22:12 WBC (3.8-10.6) k/uL RBC (4.30-5.90) m/uL Hgb (13.0-17.5) gm/dL Hct (39.0-53.0) % MCV (80.0-100.0) fL MCH (25.0-35.0) pg MCHC (31.0-37.0) g/dL RDW (11.5-15.5) % Plt Count (150-450) k/uL Neutrophils % % Lymphocytes % % Monocytes % % Eosinophils % % Basophils % % Neutrophils # (1.3-7.7) k/uL Lymphocytes # (1.0-4.8) k/uL Monocytes # (0-1.0) k/uL Eosinophils # (0-0.7) k/uL Basophils # (0-0.2) k/uL PT 12.0 (9.0-12.0) sec INR 1.1 (<1.2) APTT 27.3 (22.0-30.0) sec Sodium (137-145) mmol/L Potassium (3.5-5.1) mmol/L Chloride (98-107) mmol/L Carbon Dioxide (22-30) mmol/L Anion Gap mmol/L BUN (9-20) mg/dL Creatinine (0.66-1.25) mg/dL Est GFR (CKD-EPI)AfAm (>60 ml/min/1.73 sqM) Est GFR (CKD-EPI)NonAf (>60 ml/min/1.73 sqM) Glucose (74-99) mg/dL Plasma Lactic Acid Angus (0.7-2.0) mmol/L Calcium (8.4-10.2) mg/dL Phosphorus (2.5-4.5) mg/dL Magnesium (1.6-2.3) mg/dL Total Bilirubin (0.2-1.3) mg/dL AST (17-59) U/L ALT (4-49) U/L Alkaline Phosphatase (38-126) U/L Creatine Kinase (55-170) U/L Troponin I <0.012 (0.000-0.034) ng/mL Total Protein (6.3-8.2) g/dL Albumin (3.5-5.0) g/dL TSH (0.465-4.680) mIU/L Disposition <Randell Baez B - Last Filed: 04/16/19 21:44> Is patient prescribed a controlled substance at d/c from ED?: No <Laxmi Riddle - Last Filed: 04/18/19 04:41> Clinical Impression: Dehydration, Renal insufficiency Disposition: ADMITTED IP TO THIS HOSP Condition: Stable
[2019-04-16 22:30] LABS: Basophils % (A) 0 %; Eosinophils # (A) 0.1 k/uL (0-0.7); Eosinophils % (A) 1 %; HCT 40.2 % (39.0-53.0); HGB 13.1 gm/dL (13.0-17.5); Lymphocytes # (A) 1.1 k/uL (1.0-4.8); Lymphocytes % (A) 11 %; MCH 30.6 pg (25.0-35.0); MCHC 32.5 g/dL (31.0-37.0); MCV 94.1 fL (80.0-100.0); Mean Platelet Volume 7.5; Monocytes # (A) 0.3 k/uL (0-1.0); Monocytes % (A) 3 %; Neutrophils # (A) 8.6 k/uL (1.3-7.7); Neutrophils % (A) 85 %; Platelet Count 365 k/uL (150-450); RBC 4.27 m/uL (4.30-5.90); RDW 15.7 % (11.5-15.5); WBC 10.1 k/uL (3.8-10.6)
[2019-04-16 22:39] LABS: INR 1.1 (<1.2); Partial Thromboplastin Time 27.3 sec (22.0-30.0)
[2019-04-16 22:42] LABS: Albumin 1.6 g/dL (3.5-5.0); Calcium 7.4 mg/dL (8.4-10.2); Magnesium 1.6 mg/dL (1.6-2.3); Phosphorus 3.2 mg/dL (2.5-4.5); Potassium 3.3 mmol/L (3.5-5.1); Total Bilirubin 0.6 mg/dL (0.2-1.3); Total Protein 4.2 g/dL (6.3-8.2)
--- NOTE | 2019-04-16 23:04 | XR ---
EXAMINATION TYPE: XR chest 1V portable DATE OF EXAM: 04/16/2019 COMPARISON: 03/21/2019 HISTORY: Confusion TECHNIQUE: Single view FINDINGS: There is some mild infiltrate and atelectasis at the lung bases. Heart size is normal. Ther e is no heart failure. There are chest leads. Bony thorax appears intact. IMPRESSION: There is decreased inspiration compared to last exam with mild basilar pulmonary infiltra juanita and atelectasis.
[2019-04-16] MEDS ORDERED: Potassium Replacement Protocol 1 EACH MISC MISCELLANE PRN (23:49)
[2019-04-16] MEDS ORDERED: ONDANSETRON 4 MG/2 ML VIAL IVP PRN (23:52)
[2019-04-16] MEDS ORDERED: NALOXONE 0.4 MG/ML 1 ML VIAL IV PRN (23:52)
[2019-04-17] MEDS: SODIUM CHLORIDE 0.9% 1,000 ML IV SCH ×3 (00:33→23:52)
[2019-04-17] MEDS: POTASSIUM CHLORIDE 10 MEQ in WATER FOR INJECTION 1 100ML.BAG IVPB SCH ×4 (00:33→05:07)
[2019-04-17 06:29] LABS: Basophils % (A) 0 %; Eosinophils % (A) 0 %; HGB 11.5 gm/dL (13.0-17.5); Lymphocytes # (A) 0.9 k/uL (1.0-4.8); Lymphocytes % (A) 9 %; MCH 30.7 pg (25.0-35.0); MCHC 32.8 g/dL (31.0-37.0); MCV 93.5 fL (80.0-100.0); Mean Platelet Volume 7.4; Monocytes # (A) 0.3 k/uL (0-1.0); Monocytes % (A) 3 %; Neutrophils # (A) 8.8 k/uL (1.3-7.7); Neutrophils % (A) 88 %; Platelet Count 344 k/uL (150-450); RBC 3.75 m/uL (4.30-5.90); RDW 15.5 % (11.5-15.5); WBC 10.1 k/uL (3.8-10.6)
[2019-04-17 06:36] LABS: ALT 25 U/L (4-49); AST 24 U/L (17-59); African American GFR (CKD) >90 (>60 ml/min/1.73 sqM); Albumin 1.4 g/dL (3.5-5.0); Alkaline Phosphatase 89 U/L (38-126); Anion Gap 2 mmol/L; Blood Urea Nitrogen 22 mg/dL (9-20); Carbon Dioxide 25 mmol/L (22-30); Chloride 109 mmol/L (98-107); Glucose 70 mg/dL (74-99); Magnesium 1.6 mg/dL (1.6-2.3); Non-African American GFR(CKD) 84 (>60 ml/min/1.73 sqM); Potassium 3.8 mmol/L (3.5-5.1); Sodium 136 mmol/L (137-145); Total Bilirubin 0.4 mg/dL (0.2-1.3); Total Protein 3.8 g/dL (6.3-8.2)
[2019-04-17 07:10] LABS: Glucose,Whole Blood 83 mg/dL (75-99)
[2019-04-17] MEDS: PANTOPRAZOLE 40 MG/10 ML VIAL IV SCH (08:04)
[2019-04-17] MEDS ORDERED: POTASSIUM CHLORIDE ER 20 MEQ TAB.ER PO STA (10:01)
[2019-04-17 11:16] LABS: Glucose,Whole Blood 122 mg/dL (75-99)
[2019-04-17 16:53] LABS: Glucose,Whole Blood 117 mg/dL (75-99)
[2019-04-17 20:03] LABS: Glucose,Whole Blood 128 mg/dL (75-99)
--- NOTE | 2019-04-17 21:47 | P.HPIM ---
History of Present Illness H&P Date: 04/17/19 Chief Complaint: Nausea and vomiting Patient is a 58-year-old male with a known history of hearing disorder/deafness and nicotine addiction was brought to the ER due to intractable nausea vomiting and altered mental status. Patient is a poor historian. Patient was having d iarrhea on admission but currently improved now. Currently denied any complaints of chest pain or shortness of breath. No fever no chills. No cough or sputum production. Denied any headache or dizziness or lightheadedness. EKG showed sinus rhythm with PVCs Chest x-ray showed there is decreased inspiration compared to last exam with mild bibasilar pulmonary infiltrate/atelectasis Magnesium 1.6, sodium 136 Albumin 1.4 Review of Systems Complete review of systems could not be obtained from the patient except as per HPI Past Medical History Past Medical History: Chest Pain / Angina, Hearing Disorder / Deafness Additional Past Medical History / Comment(s): patient a poor historian History of Any Multi-Drug Resistant Organisms: None Reported Past Surgical History: No Surgical Hx Reported, Cholecystectomy Additional Past Surgical History / Comment(s): patient states he had a procedure in the 80's on his stomach because "food would get stuck" Past Anesthesia/Blood Transfusion Reactions: No Reported Reaction Additional Past Anesthesia/Blood Transfusion Reaction / Comment(s): patient poor historian Past Psychological History: No Psychological Hx Reported Smoking Status: Current every day smoker Past Alcohol Use History: Occasional Past Drug Use History: None Reported Medications and Allergies Home Medications Medication Instructions Recorded Confirmed Type Unable To Assess [Unable to Assess] 04/17/19 04/17/19 History Allergies Allergy/AdvReac Type Severity Reaction Status Date / Time No Known Allergies Allergy Verified 04/17/19 09:56 Physical Exam Vitals: Vital Signs Temp Pulse Pulse Resp BP BP Pulse Ox 04/17/19 07:34 97.5 F L 97 16 100/72 100 04/17/19 01:08 98.4 F 98 17 92/57 99 04/17/19 00:50 78 18 90/55 98 04/16/19 23:52 98 04/16/19 23:46 89 18 88/57 98 04/16/19 21:30 97.8 F 56 L 18 85/67 99 Intake and Output 04/16/19 04/17/19 04/17/19 22:59 06:59 14:59 Intake Total 825 Output Total 701 Balance 124 Intake: Intake, IV Titration 825 Amount Potassium Chloride 10 meq 300 In Water For Injection 1 100ml.bag @ 100 mls/hr IVPB Q1HR [facility] Rx#: [id number] Sodium Chloride 0.9% 1, 525 000 ml @ 75 mls/hr IV . [id number] [facility] Rx#:[id number] Output: Urine 300 Stool 200 Urine/Stool Mix 1 Emesis 200 Other: Voiding Method Incontinent Weight 54.431 kg 54.431 kg PHYSICAL EXAMINATION: Patient is lying in the bed comfortably, no acute distress, awake alert patient is hard of hearing and cannot communicate. HEENT: Normocephalic. Neck is supple. Pupils reactive. Nostrils clear. Oral cavity is moist. Ears reveal no drainage. Neck reveals no JVD, carotid bruits, or thyromegaly. CHEST EXAMINATION: Trachea is central. Symmetrical expansion. Lung wilson clear to auscultation and percussion. CARDIAC: Normal S1, S2 with no gallops. No murmurs ABDOMEN: Soft. Bowel sounds normal. No organomegaly. No abdominal bruits. Extremities: reveal no edema. No clubbing or cyanosis Neurologically awake, alert, oriented x1-2 with well-coordinated movements. No focal deficits noted Skin: No rash or skin lesions. Psychiatric: Coperative. Cannot be assessed completely Musculoskeletal: No joint swelling or deformity. Normal range of motion. Results CBC & Chem 7: 04/17/19 05:50 04/17/19 05:50 Labs: Abnormal Lab Results - Last 24 Hours (Table) 04/16/19 04/16/19 04/17/19 Range/Units 22:12 22:12 05:50 RBC 4.27 L 3.75 L (4.30-5.90) m/uL Hgb 11.5 L (13.0-17.5) gm/dL Hct 35.0 L (39.0-53.0) % RDW 15.7 H (11.5-15.5) % Neutrophils # 8.6 H 8.8 H (1.3-7.7) k/uL Lymphocytes # 0.9 L (1.0-4.8) k/uL Sodium 134 L (137-145) mmol/L Potassium 3.3 L (3.5-5.1) mmol/L Chloride 108 H (98-107) mmol/L BUN 23 H (9-20) mg/dL Glucose (74-99) mg/dL POC Glucose (mg/dL) (75-99) mg/dL Calcium 7.4 L (8.4-10.2) mg/dL Total Protein 4.2 L (6.3-8.2) g/dL Albumin 1.6 L (3.5-5.0) g/dL TSH 8.840 H (0.465-4.680) mIU/L 04/17/19 04/17/19 Range/Units 05:50 11:15 RBC (4.30-5.90) m/uL Hgb (13.0-17.5) gm/dL Hct (39.0-53.0) % RDW (11.5-15.5) % Neutrophils # (1.3-7.7) k/uL Lymphocytes # (1.0-4.8) k/uL Sodium 136 L (137-145) mmol/L Potassium (3.5-5.1) mmol/L Chloride 109 H (98-107) mmol/L BUN 22 H (9-20) mg/dL Glucose 70 L (74-99) mg/dL POC Glucose (mg/dL) 122 H (75-99) mg/dL Calcium 7.0 L (8.4-10.2) mg/dL Total Protein 3.8 L (6.3-8.2) g/dL Albumin 1.4 L (3.5-5.0) g/dL TSH (0.465-4.680) mIU/L Thrombosis Risk Factor Assmnt - DVT/VTE Prophylaxis DVT/VTE Prophylaxis: Pharmacologic Prophylaxis ordered - Choose All That Apply Each Factor Represents 1 point: Age 41-60 years Other congenital or acquired thrombophilia - If yes, enter type in comment: No Thrombosis Risk Factor Assessment Total Risk Factor Score: 1 Thrombosis Risk Factor Assessment Level: Low Risk Assessment and Plan Assessment: Intractable nausea vomiting and diarrhea and possible gastroenteritis. Hypovolemic hyponatremia Hypomagnesemia Moderate to severe protein calorie malnutrition Deafness/eating disorder Cognitive impairment Ongoing nicotine addiction. Currently everyday smoker DVT prophylaxis with heparin subcu Plan: Patient will be continued on IV hydration and will replace electrolytes are for nausea and vomiting. Continue with Protonix. Monitor labs tomorrow. Further recommendations based on the course. Social work will be consulted. PT OT. Time with Patient: Greater than 30
[2019-04-17] MEDS: MAGNESIUM SULFATE-D5W PMX 1 GM in DEXTROSE/WATER 1 100ML.BAG IVPB SCH (23:50)
[2019-04-17] MEDS: HEPARIN SODIUM,PORCINE 5,000 UNIT/ML 1 ML VIAL SQ SCH (23:51)
[2019-04-18] MEDS: MAGNESIUM SULFATE-D5W PMX 1 GM in DEXTROSE/WATER 1 100ML.BAG IVPB SCH (01:06)
[2019-04-18 06:56] LABS: Glucose,Whole Blood 81 mg/dL (75-99)
[2019-04-18 07:33] LABS: Basophils % (A) 0 %; Eosinophils # (A) 0.1 k/uL (0-0.7); Eosinophils % (A) 1 %; HCT 35.4 % (39.0-53.0); HGB 11.3 gm/dL (13.0-17.5); Lymphocytes # (A) 1.1 k/uL (1.0-4.8); Lymphocytes % (A) 13 %; MCH 30.3 pg (25.0-35.0); MCHC 31.9 g/dL (31.0-37.0); MCV 95.1 fL (80.0-100.0); Mean Platelet Volume 7.8; Monocytes # (A) 0.3 k/uL (0-1.0); Monocytes % (A) 3 %; Neutrophils # (A) 6.7 k/uL (1.3-7.7); Neutrophils % (A) 82 %; Platelet Count 341 k/uL (150-450); RBC 3.73 m/uL (4.30-5.90); RDW 15.8 % (11.5-15.5); WBC 8.2 k/uL (3.8-10.6)
[2019-04-18 07:52] LABS: African American GFR (CKD) >90 (>60 ml/min/1.73 sqM); Anion Gap 0 mmol/L; Blood Urea Nitrogen 18 mg/dL (9-20); Calcium 6.9 mg/dL (8.4-10.2); Carbon Dioxide 25 mmol/L (22-30); Chloride 110 mmol/L (98-107); Glucose 68 mg/dL (74-99); Non-African American GFR(CKD) 81 (>60 ml/min/1.73 sqM); Potassium 4.1 mmol/L (3.5-5.1); Sodium 135 mmol/L (137-145)
[2019-04-18] MEDS: PANTOPRAZOLE 40 MG/10 ML VIAL IV SCH (08:25)
[2019-04-18] MEDS: HEPARIN SODIUM,PORCINE 5,000 UNIT/ML 1 ML VIAL SQ SCH ×3 (08:25→23:13)
[2019-04-18 11:11] LABS: Glucose,Whole Blood 100 mg/dL (75-99)
[2019-04-18 13:05] VITALS: BMI 16.2
--- NOTE | 2019-04-18 14:03 | P.CN ---
Psychiatric Consult - . Consult date: 04/18/19 Consult:: IDENTIFYING DATA: This patient is a 58-year-old single male admitted to medicine service for evaluation of confusion and weakness. The hospitalist consult to psychiatry for evaluation of visual and auditory hallucinations. HISTORY OF PRESENT ILLNESS: The patient is 58 years old male. He was consulted regarding bizarre behavior, talking to himself and may be weak paranoid ideations. The patient is a poor historian and was not able to provide any information. The history was obtained from chart review and discussing the case with the staff on the unit. As per staff the patient is homeless and there is no collateral information available. The patient was admitted for abdominal pain and multiple somatic problems. The patient was found to be talking to himself "was no one in the room. The patient was also asking the staff about the computers in the room. He was not able to elaborate and was not able to clarify what he was asking. The patient reports that he has been doing okay but refused to answer any further questions and covered his face with a blanket and not did not respond. As per staff the patient has not been suicidal or homicidal. The patient has been cooperative and compliant with the care. As per records the patient had a psych consult in March 2019 with similar presentation. He has hearing impaired and was very difficult to interview. He alleged that he came to Hospital because of abdominal pain. He gave inconsistent responses to questions. The record indicates that he is homeless. He does not work and alleges he does not receive Social Security but has an income. PAST PSYCHIATRIC HISTORY: He denies past psychiatric hospitalizations. I spoke with the community mental health liaison from the psychiatric unit. As per the previous psychiatric consultations, he was admitted to our unit in August 2005 but I could not find any records in the computer regarding admission..He did not keep his appointments with [facility] and they have no assessment information. The records only indicate that he has history of alcohol use problems. He denied that he been treated by mental health professionals such as a therapist, counselor, social media strategist, psychologist or psychiatrist. PAST MEDICAL HISTORY: Hearing impairment ALLERGIES: NO KNOWN DRUG ALLERGIES. SUBSTANCE USE HISTORY: He apparently has a history of alcohol use disorder but during our interview he denied use of alcohol and gave a inconsistent history of alcohol use and alcohol use problems. FAMILY PSYCHIATRIC/SUBSTANCE USE HISTORY: He would not talk about his family history. SOCIAL HISTORY: His born in [place] allegedly to an intact family. He has 1 sister. 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 He is currently unemployed. He is single and would not answer whether he has children. MENTAL STATUS EXAM: He presented as a thin disheveled appearing male with long unkempt hair. He is laying in bed. He did not cooperate with interview. He made eye contact and had difficulty concentrating interview. The severity was hearing impairment interfered with him understanding questions. He had a blunted but bright facial expression. He was alert and oriented to person and place. He showed psychomotor retardation but no abnormal movements. His speech was spontaneous with decreased rate but normal volume. His affect was stable and appropriate. He denied suicidal ideation, wishes and homicidal ideation. He did not express feeling paranoid ideation or ideas reference. He denied auditory, visual or olfactory hallucinations. I attempted to perform a formal mental status exam. He would not cooperate with the remainder of the examination. He was essentially untestable. 04/18/19 13:03 04/18/19 13:51 04/18/19 14:02 Assessment and Plan Assessment: IMPRESSIONS:He is a 58-year-old man with a moderately severe hearing impairment. The hospitalist consult psychiatry to evaluate him for auditory or visual hallucinations. He was difficult interview due to the hearing impairment. He would not cooperate with much of the examination. He denied paranoid delusions and did not appear to be responding to internal stimuli at this time. I suspect that he is cognitively impaired and most likely has a history of alcohol use problems. He appears to be a vulnerable adult but does not require acute psychiatric services at this time. DIAGNOSIS: Acute confusional state, rule out developmental disability, rule out neurocognitive disorder, alcohol use disorder (provisional) Plan: PLAN: There is no indication for transfer psychiatric in this time. Social work to identify a family or friend who may provide additional information to clarify his history. May order Seroquel 25 mg by mouth 3 times a day when necessary for possible anxiety or agitation.
[2019-04-18 16:37] LABS: Glucose,Whole Blood 115 mg/dL (75-99)
[2019-04-18] MEDS: SODIUM CHLORIDE 0.9% 1,000 ML IV SCH ×2 (19:00→23:13)
[2019-04-18 19:59] LABS: Glucose,Whole Blood 111 mg/dL (75-99)
--- NOTE | 2019-04-19 00:18 | P.PN ---
Subjective Progress Note Date: 04/18/19 Principal diagnosis: Nausea and vomiting Patient is a 58-year-old male with a known history of hearing disorder/deafness and nicotine addiction was brought to the ER due to intractable nausea vomiting and altered mental status. Patient is a poor historian. Patient was having d iarrhea on admission but currently improved now. Currently denied any complaints of chest pain or shortness of breath. No fever no chills. No cough or sputum production. Denied any headache or dizziness or lightheadedness. EKG showed sinus rhythm with PVCs Chest x-ray showed there is decreased inspiration compared to last exam with mild bibasilar pulmonary infiltrate/atelectasis Magnesium 1.6, sodium 136 Albumin 1.4 04/18/2019 Patient is currently lying in the bed. Hard of hearing. Nausea is improving. Patient is able to eat lunch today. No commerce of chest pain or shortness of breath.. Seen by psychiatric. Patient has been afebrile. Possible discharge soon. Current medications reviewed. Objective - Vital Signs Vital signs: Vital Signs Temp 98.9 F 04/18/19 19:28 Pulse 104 H 04/18/19 19:28 Resp 18 04/18/19 19:28 BP 95/62 04/18/19 19:28 Pulse Ox 98 04/18/19 19:28 Intake & Output 04/18/19 04/18/19 04/19/19 06:59 18:59 06:59 Intake Total 900 500 Output Total 100 Balance 800 500 Weight 54.431 kg Intake: Intake, IV Titration 900 Amount Sodium Chloride 0.9% 1, 900 000 ml @ 75 mls/hr IV . [id number] [facility] Rx#:[id number] Oral 500 Output: Urine 100 Other: Voiding Method Urinal Urinal Urinal Incontinent Incontinent Incontinent # Voids 1 2 1 # Bowel Movements 1 1 1 - Exam PHYSICAL EXAMINATION: Patient is lying in the bed comfortably, no acute distress, awake alert patient is hard of hearing and cannot communicate. HEENT: Normocephalic. Neck is supple. Pupils reactive. Nostrils clear. Oral cavity is moist. Ears reveal no drainage. Neck reveals no JVD, carotid bruits, or thyromegaly. CHEST EXAMINATION: Trachea is central. Symmetrical expansion. Lung wilson clear to auscultation and percussion. CARDIAC: Normal S1, S2 with no gallops. No murmurs ABDOMEN: Soft. Bowel sounds normal. No organomegaly. No abdominal bruits. Extremities: reveal no edema. No clubbing or cyanosis Neurologically awake, alert, oriented x1-2 with well-coordinated movements. No focal deficits noted Skin: No rash or skin lesions. Psychiatric: Coperative. Cannot be assessed completely Musculoskeletal: No joint swelling or deformity. Normal range of motion. - Labs CBC & Chem 7: 04/18/19 06:46 04/18/19 06:46 Labs: Abnormal Lab Results - Last 24 Hours (Table) 04/18/19 04/18/19 04/18/19 Range/Units 06:46 06:46 11:10 RBC 3.73 L (4.30-5.90) m/uL Hgb 11.3 L (13.0-17.5) gm/dL Hct 35.4 L (39.0-53.0) % RDW 15.8 H (11.5-15.5) % Sodium 135 L (137-145) mmol/L Chloride 110 H (98-107) mmol/L Glucose 68 L (74-99) mg/dL POC Glucose (mg/dL) 100 H (75-99) mg/dL Calcium 6.9 L (8.4-10.2) mg/dL 04/18/19 04/18/19 Range/Units 16:36 19:58 RBC (4.30-5.90) m/uL Hgb (13.0-17.5) gm/dL Hct (39.0-53.0) % RDW (11.5-15.5) % Sodium (137-145) mmol/L Chloride (98-107) mmol/L Glucose (74-99) mg/dL POC Glucose (mg/dL) 115 H 111 H (75-99) mg/dL Calcium (8.4-10.2) mg/dL Assessment and Plan Assessment: Intractable nausea vomiting and diarrhea and possible gastroenteritis. Improved now. Hypovolemic hyponatremia Hypomagnesemia Moderate to severe protein calorie malnutrition Deafness/eating disorder Cognitive impairment Ongoing nicotine addiction. Currently everyday smoker DVT prophylaxis with heparin subcu Plan: Patient will be continued on IV hydration and will replace electrolytes are for nausea and vomiting. Continue with Protonix. Monitor labs tomorrow. Encourage oral intake. Further recommendations based on the course. Social work will be consulted. PT OT. Time with Patient: Greater than 30
[2019-04-19 06:59] LABS: Glucose,Whole Blood 71 mg/dL (75-99)
[2019-04-19] MEDS: HEPARIN SODIUM,PORCINE 5,000 UNIT/ML 1 ML VIAL SQ SCH ×2 (08:34→16:17)
[2019-04-19] MEDS: PANTOPRAZOLE 40 MG/10 ML VIAL IV SCH (08:34)
[2019-04-19 11:59] LABS: Glucose,Whole Blood 78 mg/dL (75-99)
--- NOTE | 2019-04-19 16:04 | P.PN ---
Subjective Progress Note Date: 04/19/19 Principal diagnosis: Nausea and vomiting Patient is a 58-year-old male with a known history of hearing disorder/deafness and nicotine addiction was brought to the ER due to intractable nausea vomiting and altered mental status. Patient is a poor historian. Patient was having d iarrhea on admission but currently improved now. Currently denied any complaints of chest pain or shortness of breath. No fever no chills. No cough or sputum production. Denied any headache or dizziness or lightheadedness. EKG showed sinus rhythm with PVCs Chest x-ray showed there is decreased inspiration compared to last exam with mild bibasilar pulmonary infiltrate/atelectasis Magnesium 1.6, sodium 136 Albumin 1.4 04/18/2019 Patient is currently lying in the bed. Hard of hearing. Nausea is improving. Patient is able to eat lunch today. No commerce of chest pain or shortness of breath.. Seen by psychiatric. Patient has been afebrile. Possible discharge soon. Current medications reviewed. 04/19/2019 Patient is currently sitting up in bed eating lunch and appears to be in no ac soo distress. Patient asked if I could stand at the left side of the bed while talking as he is extremely hard of hearing. Nursing staff notified play writer of 11 runs of V. tach this morning. Patient denies any chest pain, shortness of breath, or palpitations at this time. EKG, troponin, and cardiology consult was ordered. Patient is refusing all labs and states that he is not having chest pain. Case management and social work are following as patient may need a guardian as there are some underlying developmental disability or mental health issues and patient does not appear to be able to make his own medical decisions at this time. Psychiatry is following. Objective - Vital Signs Vital signs: Vital Signs Temp 97.7 F 04/19/19 14:53 Pulse 101 H 04/19/19 14:53 Resp 16 04/19/19 14:53 BP 98/66 04/19/19 14:53 Pulse Ox 97 04/19/19 14:53 Intake & Output 04/18/19 04/19/19 04/19/19 18:59 06:59 18:59 Intake Total 500 1352 Balance 500 1352 Weight 54.431 kg Intake: Oral 500 1352 Other: Voiding Method Urinal Urinal Incontinent Incontinent # Voids 2 1 # Bowel Movements 1 1 1 - Exam Patient is sitting up in the bed comfortably, no acute distress, awake alert eating lunch. patient is hard of hearing and cannot communicate. HEENT: Normocephalic. Neck is supple. Pupils reactive. Nostrils clear. Oral cavity is moist. Ears reveal no drainage. Neck reveals no JVD, carotid bruits, or thyromegaly. CHEST EXAMINATION: Trachea is central. Symmetrical expansion. Lung wilson clear to auscultation and percussion. CARDIAC: Normal S1, S2 with no gallops. No murmurs ABDOMEN: Soft. Bowel sounds normal. No organomegaly. No abdominal bruits. Extremities: reveal no edema. No clubbing or cyanosis Neurologically awake, alert, oriented x1-2 with well-coordinated movements. No focal deficits noted Skin: No rash or skin lesions. Psychiatric: Cooperative at times. Non-suicidal. Cannot be assessed completely Musculoskeletal: No joint swelling or deformity. Normal range of motion. - Labs CBC & Chem 7: 04/18/19 06:46 04/18/19 06:46 Labs: Abnormal Lab Results - Last 24 Hours (Table) 04/18/19 04/18/19 04/19/19 Range/Units 16:36 19:58 06:58 POC Glucose (mg/dL) 115 H 111 H 71 L (75-99) mg/dL Assessment and Plan Assessment: Intractable nausea vomiting and diarrhea and possible gastroenteritis. Improved now. Patient is tolerating diet Hypovolemic hyponatremia Hypomagnesemia Moderate to severe protein calorie malnutrition Deafness/eating disorder Cognitive impairment Ongoing nicotine addiction. Currently everyday smoker DVT prophylaxis with heparin subq Plan: Nausea and vomiting has subsided. Patient is tolerating diet. Continue with Protonix. Monitor labs tomorrow. Cardiology was consulted due to 11 runs of V. tach as seen on the monitor today. An EKG and troponin was ordered but patient refused. Encourage oral intake. Further recommendations based on the course. Case management and Social work following and working on obtaining guardianship as the patient is unable to make sound decisions on his own. Further recommendations to follow.
[2019-04-19 17:02] LABS: Glucose,Whole Blood 90 mg/dL (75-99)
[2019-04-19 20:45] LABS: Glucose,Whole Blood 74 mg/dL (75-99)
[2019-04-20 00:26] LABS: Glucose,Whole Blood 73 mg/dL (75-99)
[2019-04-20] MEDS: SODIUM CHLORIDE 0.9% 1,000 ML IV SCH ×3 (00:40→21:50)
[2019-04-20] MEDS: HEPARIN SODIUM,PORCINE 5,000 UNIT/ML 1 ML VIAL SQ SCH ×4 (00:40→23:40)
[2019-04-20 01:19] LABS: Glucose,Whole Blood 98 mg/dL (75-99)
[2019-04-20 06:56] LABS: Glucose,Whole Blood 77 mg/dL (75-99)
[2019-04-20] MEDS: PANTOPRAZOLE 40 MG TABLET PO SCH (07:56)
[2019-04-20] MEDS: METOPROLOL SUCCINATE (ER) 25 MG TAB.ER.24H PO SCH (11:44)
[2019-04-20 11:48] LABS: Glucose,Whole Blood 77 mg/dL (75-99)
--- NOTE | 2019-04-20 13:01 | ECHOF ---
Referral Reason:11 beat run of v-tach MEASUREMENTS -------- HEIGHT: 180.3 cm WEIGHT: 54.4 kg BP: MV E Meng: 0.61 m/s MV DecT: 66 ms MV A Meng: 0.40 m/s MV E/A Ratio: 1.55 RAP: 5.00 mmHg RVSP: 6.52 mmHg FINDINGS -------- Sinus rhythm. Limited Study Pt. not compliant. There is normal global left ventricular contractility. Overall left ventricular systolic function i s normal with, an EF between 55 - 60 %. The RV was not well visualized. The left atrium was not well visualized. The right atrium was not well visualized. The aortic valve was not well visualized. The mitral valve was not well visualized. The tricuspid valve was not well visualized. The pulmonic valve was not well visualized. CONCLUSIONS -------- 1. Sinus rhythm. 2. Limited Study 3. Pt. not compliant. 4. Unable to comment on function. Tds. Pt refused Lumason. 5. There is normal global left ventricular contractility. 6. The RV was not well visualized. 7. The left atrium was not well visualized. 8. The right atrium was not well visualized. 9. The aortic valve was not well visualized. 10. The mitral valve was not well visualized. 11. The tricuspid valve was not well visualized. 12. The pulmonic valve was not well visualized. EXPANDING MACHINE OPERATOR: Radha Crews, [facility]
[2019-04-20] MEDS ORDERED: QUEtiapine 25 MG TAB PO PRN (13:31)
--- NOTE | 2019-04-20 14:24 | P.PN ---
Subjective Progress Note Date: 04/20/19 Principal diagnosis: Nausea and vomiting Patient is a 58-year-old male with a known history of hearing disorder/deafness and nicotine addiction was brought to the ER due to intractable nausea vomiting and altered mental status. Patient is a poor historian. Patient was having d iarrhea on admission but currently improved now. Currently denied any complaints of chest pain or shortness of breath. No fever no chills. No cough or sputum production. Denied any headache or dizziness or lightheadedness. EKG showed sinus rhythm with PVCs Chest x-ray showed there is decreased inspiration compared to last exam with mild bibasilar pulmonary infiltrate/atelectasis Magnesium 1.6, sodium 136 Albumin 1.4 04/18/2019 Patient is currently lying in the bed. Hard of hearing. Nausea is improving. Patient is able to eat lunch today. No commerce of chest pain or shortness of breath.. Seen by psychiatric. Patient has been afebrile. Possible discharge soon. Current medications reviewed. 04/19/2019 Patient is currently sitting up in bed eating lunch and appears to be in no ac soo distress. Patient asked if I could stand at the left side of the bed while talking as he is extremely hard of hearing. Nursing staff notified loan underwriter of 11 runs of V. tach this morning. Patient denies any chest pain, shortness of breath, or palpitations at this time. EKG, troponin, and cardiology consult was ordered. Patient is refusing all labs and states that he is not having chest pain. Case management and social work are following as patient may need a guardian as there are some underlying developmental disability or mental health issues and patient does not appear to be able to make his own medical decisions at this time. Psychiatry is following. 04/20/2019 Patient is lying in bed completely covered with his blanket over his head and appears to be in no acute distress. When talking with the patient about discharge planning patient stated that he has a new place to go to but will not let us know where it is and that he's had partner integration planner in the past. Patient also stated that multiple times during conversation "that was another person talking within me". Psychiatry was called and asked to reevaluate the patient as patient needs inpatient psychiatry. Currently patient is denying any chest pain or palpitations. Patient states with when he is up and walking he gets short of breath. Patient is afebrile. Patient denies any nausea or vomiting and is tolerating diet. Per nursing staff bowel movement today was loose. Objective - Vital Signs Vital signs: Vital Signs Temp 98.5 F 04/20/19 07:00 Pulse 102 H 04/20/19 07:00 Resp 16 04/20/19 07:00 BP 108/74 04/20/19 07:00 Pulse Ox 96 04/20/19 07:00 Intake & Output 04/19/19 04/20/19 04/20/19 18:59 06:59 18:59 Intake Total 1470 250 200 Balance 1470 250 200 Intake: Oral 1470 250 200 Other: Voiding Method Urinal Urinal Incontinent Incontinent # Voids 2 # Bowel Movements 4 1 2 - Exam Patient is sitting up in the bed comfortably, no acute distress, awake alert. patient is hard of hearing and hears better on the left side. HEENT: Normocephalic. Neck is supple. Pupils reactive. Nostrils clear. Oral cavity is moist. Ears reveal no drainage. Neck reveals no JVD, carotid bruits, or thyromegaly. CHEST EXAMINATION: Trachea is central. Symmetrical expansion. Lung wilson clear to auscultation and percussion. CARDIAC: Normal S1, S2 with no gallops. No murmurs ABDOMEN: Soft. Bowel sounds normal. No organomegaly. No abdominal bruits. Extremities: reveal no edema. No clubbing or cyanosis Neurologically awake, alert, oriented x1-2 with well-coordinated movements. No focal deficits noted Skin: No rash or skin lesions. Psychiatric: Cooperative at times. Non-suicidal. Cannot be assessed completely Musculoskeletal: No joint swelling or deformity. Normal range of motion. - Labs CBC & Chem 7: 04/18/19 06:46 04/18/19 06:46 Labs: Abnormal Lab Results - Last 24 Hours (Table) 04/19/19 04/20/19 Range/Units 20:34 00:12 POC Glucose (mg/dL) 74 L 73 L (75-99) mg/dL Assessment and Plan Assessment: Intractable nausea vomiting and diarrhea and possible gastroenteritis. Improved now. Patient is tolerating diet Hypovolemic hyponatremia Hypomagnesemia Moderate to severe protein calorie malnutrition Deafness/eating disorder Cognitive impairment Ongoing nicotine addiction. Currently everyday smoker DVT prophylaxis with heparin subq Plan: Nausea and vomiting has subsided. Patient is tolerating diet. Continue with Protonix. Patient refusing all labs. Cardiology was consulted due to 11 runs of V. tach as seen on the monitor today. Echo was done today showing overall left ventricular systolic function is normal with an EF between 55 and 60%. Psychiatry was called again to reassess the patient for possible inpatient psychiatric facility as patient continues to state that he hears voices and other people are talking when there is no one in the room. Further recommendations based on the course. Case management and Social work following and working on obtaining possible guardianship if needed as the patient is unable to make sound decisions on his own. Further recommendations to follow.
--- NOTE | 2019-04-20 15:44 | P.PN ---
Progress Note - Text Progress Note Date: 04/20/19 Psychiatric progress note: Interval history: Patient was seen for psychiatric follow-up today at the request of medical team. Patient was initially brought into the hospital for nausea and vomiting and altered mental status. Patient has been refusing some labs and blood draws however has been eating meals. As per nurse taking care of patient states that at times patient has been talking loudly and talking to himself in his room however has had not had any any behavioral problems. Patient was seen at the bedside and appears to be frail/thin and was hard of hearing. Patient was directable and agreeable to speak to conventional mortgage underwriter and was for the most part appropriate however at times was illogical and somatically preoccupied with pain. Patient does have poor insight and judgment and was not able to verbalize what his treatment is and the risks versus benefits of his treatment versus no treatment. He denied any depressive symptoms and denied any anxiety at this time. He pointed to his bladder claimed that he was in pain. Patient does have some impulse control however was not intrusive or inappropriate with conventional mortgage underwriter. At this time patient denies any suicidal or homicidal ideations intent or plan. Denies any Auditory or visual hallucinations. Patient denies any side effects from the medications. He admitted to poor sleep. Mental status exam: General Appearance: [Patient appears to be older than stated age is thin/frail, alert, attempts to cooperate, irritable at times.] Poor hygiene and grooming. Poor dentition. Behavior: Some irritable behavior, was directable and appropriate. Speech: Patient's speech is fluent and nonpressured. Mood/Affect: Mood is "fine", affect is congruent and constricted. Suicidality/Homicidality: Patient denies having any suicidal or homicidal ideation intent or plan. Perceptions: Patient denies any auditory or visual hallucinations. Though content/process: Patient was illogical at times but for the most part were organized and goal oriented. Hard of hearing. Somatically preoccupied. Memory and concentration: AOX2-3, grossly intact for the purposes of this session Judgment and insight: improving Assessment/Plan: Continue with current diagnosis/assessment. Patient continues to NOT meet criteria for inpatient psychiatric admission. Will start patient on scheduled Seroquel 25 mg twice a day for mood stabilization/irritability/insomnia. At this time patient does not have decision-making capacity as patient is not able to verbalize and understand risks versus benefits of treatment. Patient is currently homeless and social insurance adviser is looking into housing options. SW to continue with guardianship. Monitor for medication compliance and for any psychotropic medication side effects. Will continue to monitor ongoing response to treatment. Psychiatry will continue to follow. Please call with any questions.
[2019-04-20] MEDS: QUEtiapine 25 MG TAB PO SCH ×2 (16:18→23:39)
[2019-04-20 16:40] LABS: Glucose,Whole Blood 86 mg/dL (75-99)
[2019-04-21] MEDS: PANTOPRAZOLE 40 MG TABLET PO SCH (09:35)
[2019-04-21] MEDS: HEPARIN SODIUM,PORCINE 5,000 UNIT/ML 1 ML VIAL SQ SCH ×3 (09:35→22:48)
[2019-04-21] MEDS: QUEtiapine 25 MG TAB PO SCH (09:36)
[2019-04-21] MEDS: METOPROLOL SUCCINATE (ER) 25 MG TAB.ER.24H PO SCH (09:36)
[2019-04-21] MEDS: SODIUM CHLORIDE 0.9% 1,000 ML IV SCH ×2 (10:52→22:49)
--- NOTE | 2019-04-21 14:46 | P.PN ---
Subjective 58-year-old male with a known history of hearing disorder/deafness and nicotine addiction was brought to the ER due to intractable nausea vomiting and altered mental status. Patient is a poor historian. Patient was having diarrhea on admission but currently improved now. Currently denied any complaints of chest pain or shortness of breath. No fever no chills. No cough or sputum production. Denied any headache or dizziness or lightheadedness. EKG showed sinus rhythm with PVCs Chest x-ray showed there is decreased inspiration compared to last exam with mild bibasilar pulmonary infiltrate/atelectasis Magnesium 1.6, sodium 136 Albumin 1.4 04/18/2019 Patient is currently lying in the bed. Hard of hearing. Nausea is improving. Patient is able to eat lunch today. No commerce of chest pain or shortness of breath.. Seen by psychiatric. Patient has been afebrile. Possible discharge soon. Current medications reviewed. 04/19/2019 Patient is currently sitting up in bed eating lunch and appears to be in no acute distress. Patient asked if I could stand at the left side of the bed while talking as he is extremely hard of hearing. Nursing staff notified race and sports book writer of 11 runs of V. tach this morning. Patient denies any chest pain, shortness of breath, or palpitations at this time. EKG, troponin, and cardiology consult was ordered. Patient is refusing all labs and states that he is not having chest pain. Case management and social work are following as patient may need a guardian as there are some underlying developmental disability or mental health issues and patient does not appear to be able to make his own medical decisions at this time. Psychiatry is following. 04/20/2019 Patient is lying in bed completely covered with his blanket over his head and appears to be in no acute distress. When talking with the patient about discharge planning patient stated that he has a new place to go to but will not let us know where it is and that he's had l tacker in the past. Patient also stated that multiple times during conversation "that was another person talking within me". Psychiatry was called and asked to reevaluate the patient as patient needs inpatient psychiatry. Currently patient is denying any chest pain or palpitations. Patient states with when he is up and walking he gets short of breath. Patient is afebrile. Patient denies any nausea or vomiting and is tolerating diet. Per nursing staff bowel movement today was loose. 04/21/2019 Overnight events patient is more cooperative now compared to yesterday and day before. Patient is sitting in the bed and eating his lunch when I evaluated the patient. Awaiting guardianship after which his disposition will be decided Review of Systems: Cardiovascular: No reports of chest pain or palpitations Respiratory: No reports of shortness of breath or cough GI: No reports of nausea, vomiting, or diarrhea : No reports of dysuria or retention Objective - Vital Signs Vital signs: Vital Signs Temp 98.7 F 04/21/19 07:00 Pulse 105 H 04/21/19 07:00 Resp 16 04/21/19 07:00 BP 94/68 04/21/19 07:00 Pulse Ox 96 04/21/19 07:00 Intake & Output 04/20/19 04/21/19 04/21/19 18:59 06:59 18:59 Intake Total 200 Output Total 400 Balance 200 -400 Intake: Oral 200 Output: Stool 400 Other: Voiding Method Urinal Urinal Urinal Incontinent Incontinent Incontinent # Voids 2 1 # Bowel Movements 2 1 - Exam PHYSICAL EXAMINATION: GENERAL: The patient is alert and oriented x3, not in any acute distress. Thin built HEENT: Pupils are round and equally reacting to light. EOMI. No scleral icterus. No conjunctival pallor. Normocephalic, atraumatic. No pharyngeal erythema. No th yromegaly. CARDIOVASCULAR: S1 and S2 present. No murmurs, rubs, or gallops. PULMONARY: Chest is clear to auscultation, no wheezing or crackles. ABDOMEN: Soft, nontender, nondistended, normoactive bowel sounds. No palpable organomegaly. MUSCULOSKELETAL: No joint swelling or deformity. EXTREMITIES: No cyanosis, clubbing, or pedal edema. NEUROLOGICAL: Gross neurological examination did not reveal any focal deficits. SKIN: No rashes. - Labs CBC & Chem 7: 04/18/19 06:46 04/18/19 06:46 Assessment and Plan Plan: Intractable nausea vomiting and diarrhea and possible gastroenteritis. Improved now. Patient is tolerating diet Hypovolemic hyponatremia resolved Hypomagnesemia Moderate to severe protein calorie malnutrition Deafness/eating disorder Cognitive impairment -Acute psychosis which improved at this time patient still cannot make dictation awaiting guardianship and after that the patient's disposition will be decided. Patient is on Seroquel at this time. Ongoing nicotine addiction. Currently everyday smoker DVT prophylaxis with heparin subq
--- NOTE | 2019-04-21 15:31 | P.PN ---
Progress Note - Text Progress Note Date: 04/21/19 Psychiatric progress note: Interval history: Patient was seen today for psychiatric follow-up today. As per nurse taking care of patient states that patient has been mildly improving and has been taking his Seroquel. Patient was seen at the bedside sitting in his chair and was able to recognize life insurance underwriter. Patient continues to have a difficult time understanding and hearing others however was communicative and agreeable to speak with life insurance underwriter. Patient offered no overnight complaints and states that he slept to the night "well". Patient continues to appear to be frail/thin and have some disorganized thinking however for the most part was logical and cooperative/appropriate. He denied any depressive symptoms and denied any anxiety at this time. He pointed to his bladder again and stated that he has some mild cramping. At this time patient denies any suicidal or homicidal ideations intent or plan. Denies any Auditory or visual hallucinations. Patient denies any side effects from the medications. He admitted to poor sleep. Mental status exam: General Appearance: [Patient appears to be older than stated age is thin/frail, alert, attempts to cooperate, less irritable today.] Poor hygiene and grooming. Poor dentition. Behavior: Some irritable behavior, was directable and appropriate. Speech: Patient's speech is fluent and nonpressured. Mood/Affect: Mood is "ok", affect is congruent and constricted. Suicidality/Homicidality: Patient denies having any suicidal or homicidal ideation intent or plan. Perceptions: Patient denies any auditory or visual hallucinations. Though content/process: Patient was illogical at times but for the most part were organized and goal oriented. Hard of hearing. Memory and concentration: AOX2-3, grossly intact for the purposes of this session Judgment and insight: improving rapidly Assessment/Plan: Continue with current diagnosis/assessment. Patient continues to NOT meet criteria for inpatient psychiatric admission. Will increase Seroquel 25 mg every morning + 50 mg nightly for mood stabilization/irr itability/insomnia. At this time patient continues to not have decision-making capacity as patient is not able to verbalize and understand risks versus benefits of treatment. Patient is currently homeless and social insurance specialist is looking into housing options and possibly getting patient to complete Medicaid application. Continue with guardianship. Monitor for medication compliance and for any psychotropic medication side effects. Will continue to monitor ongoing response to treatment. Psychiatry will continue to follow as needed
[2019-04-21] MEDS ORDERED: QUEtiapine 25 MG TAB PO SCH ×2 (21:00)
[2019-04-21] MEDS: QUEtiapine 50 MG TAB PO SCH (21:36)
[2019-04-22] MEDS: METOPROLOL SUCCINATE (ER) 25 MG TAB.ER.24H PO SCH (07:47)
[2019-04-22] MEDS: QUEtiapine 25 MG TAB PO SCH (07:48)
[2019-04-22] MEDS: PANTOPRAZOLE 40 MG TABLET PO SCH (07:48)
[2019-04-22] MEDS: HEPARIN SODIUM,PORCINE 5,000 UNIT/ML 1 ML VIAL SQ SCH ×3 (07:49→23:08)
--- NOTE | 2019-04-22 15:43 | P.PN ---
Subjective 58-year-old male with a known history of hearing disorder/deafness and nicotine addiction was brought to the ER due to intractable nausea vomiting and altered mental status. Patient is a poor historian. Patient was having diarrhea on admission but currently improved now. Currently denied any complaints of chest pain or shortness of breath. No fever no chills. No cough or sputum production. Denied any headache or dizziness or lightheadedness. EKG showed sinus rhythm with PVCs Chest x-ray showed there is decreased inspiration compared to last exam with mild bibasilar pulmonary infiltrate/atelectasis Magnesium 1.6, sodium 136 Albumin 1.4 04/18/2019 Patient is currently lying in the bed. Hard of hearing. Nausea is improving. Patient is able to eat lunch today. No commerce of chest pain or shortness of breath.. Seen by psychiatric. Patient has been afebrile. Possible discharge soon. Current medications reviewed. 04/19/2019 Patient is currently sitting up in bed eating lunch and appears to be in no acute distress. Patient asked if I could stand at the left side of the bed while talking as he is extremely hard of hearing. Nursing staff notified health technical writer of 11 runs of V. tach this morning. Patient denies any chest pain, shortness of breath, or palpitations at this time. EKG, troponin, and cardiology consult was ordered. Patient is refusing all labs and states that he is not having chest pain. Case management and social work are following as patient may need a guardian as there are some underlying developmental disability or mental health issues and patient does not appear to be able to make his own medical decisions at this time. Psychiatry is following. 04/20/2019 Patient is lying in bed completely covered with his blanket over his head and appears to be in no acute distress. When talking with the patient about discharge planning patient stated that he has a new place to go to but will not let us know where it is and that he's had automotive services manager in the past. Patient also stated that multiple times during conversation "that was another person talking within me". Psychiatry was called and asked to reevaluate the patient as patient needs inpatient psychiatry. Currently patient is denying any chest pain or palpitations. Patient states with when he is up and walking he gets short of breath. Patient is afebrile. Patient denies any nausea or vomiting and is tolerating diet. Per nursing staff bowel movement today was loose. 04/21/2019 Overnight events patient is more cooperative now compared to yesterday and day before. Patient is sitting in the bed and eating his lunch when I evaluated the patient. Awaiting guardianship after which his disposition will be decided 04/22/2019 Already events patient Seroquel is being increased awaiting disposition and guardianship. Review of Systems: Cardiovascular: No reports of chest pain or palpitations Respiratory: No reports of shortness of breath or cough GI: No reports of nausea, vomiting, or diarrhea : No reports of dysuria or retention Objective - Vital Signs Vital signs: Vital Signs Temp 98.2 F 04/22/19 07:00 Pulse 107 H 04/22/19 08:00 Resp 17 04/22/19 08:00 BP 95/70 04/22/19 07:00 Pulse Ox 98 04/22/19 07:00 Intake & Output 04/21/19 04/22/19 04/22/19 18:59 06:59 18:59 Intake Total 580 540 Output Total 1 Balance 580 540 -1 Weight 62.8 kg 62.3 kg Intake: Oral 580 540 Output: Stool 1 Other: Voiding Method Urinal Incontinent Incontinent # Voids 2 2 # Bowel Movements 1 1 1 - Exam PHYSICAL EXAMINATION: GENERAL: The patient is alert and oriented x3, not in any acute distress. Thin built HEENT: Pupils are round and equally reacting to light. EOMI. No scleral icterus. No conjunctival pallor. Normocephalic, atraumatic. No pharyngeal erythema. No thyromegaly. CARDIOVASCULAR: S1 and S2 present. No murmurs, rubs, or gallops. PULMONARY: Chest is clear to auscultation, no wheezing or crackles. ABDOMEN: Soft, nontender, nondistended, normoactive bowel sounds. No palpable organomegaly. MUSCULOSKELETAL: No joint swelling or deformity. EXTREMITIES: No cyanosis, clubbing, or pedal edema. NEUROLOGICAL: Gross neurological examination did not reveal any focal deficits. SKIN: No rashes. - Labs CBC & Chem 7: 04/18/19 06:46 04/18/19 06:46 Assessment and Plan Plan: Intractable nausea vomiting and diarrhea and possible gastroenteritis. Improved now. Patient is tolerating diet Hypovolemic hyponatremia resolved Hypomagnesemia Moderate to severe protein calorie malnutrition Deafness/eating disorder Cognitive impairment -Acute psychosis which improved at this time patient still cannot make dictation awaiting guardianship and after that the patient's disposition will be decided. Patient is on Seroquel at this time. Dose of which is being increased Ongoing nicotine addiction. Currently everyday smoker DVT prophylaxis with heparin subq
[2019-04-22] MEDS: SODIUM CHLORIDE 0.9% 1,000 ML IV SCH (19:13)
[2019-04-22] MEDS: QUEtiapine 50 MG TAB PO SCH (21:38)
[2019-04-23 01:48] VITALS: RESP 18; TEMP 98
[2019-04-23] MEDS: SODIUM CHLORIDE 0.9% 1,000 ML IV SCH ×2 (04:42→15:37)
[2019-04-23 07:49] VITALS: BP 93/63; PULSE 98
[2019-04-23] MEDS: HEPARIN SODIUM,PORCINE 5,000 UNIT/ML 1 ML VIAL SQ SCH ×2 (09:10→15:37)
[2019-04-23] MEDS: METOPROLOL SUCCINATE (ER) 25 MG TAB.ER.24H PO SCH (09:14)
[2019-04-23] MEDS: PANTOPRAZOLE 40 MG TABLET PO SCH (09:14)
[2019-04-23] MEDS: QUEtiapine 25 MG TAB PO SCH (09:14)
--- NOTE | 2019-04-23 15:37 | P.DS ---
Providers Date of admission: 04/16/19 23:55 Attending physician: Rell Mejia Consults: 04/16/19 23:53 Consult Physician Urgent Consulting Provider: Sherri Fererira Consult Reason/Comments: acute psychosis Do you want consulting provider notified?: Yes 04/19/19 11:57 Consult Physician Urgent Consulting Provider: Evita Jimenez Consult Reason/Comments: runs of Vtach Do you want consulting provider notified?: Yes Primary care physician: Stated None Hospital Course: 58-year-old male with a known history of hearing disorder/deafness and nicotine addiction was brought to the ER due to intractable nausea vomiting and altered mental status. Patient is a poor historian. Patient was having diarrhea on admission but currently improved now. Currently denied any complaints of chest pain or shortness of breath. No fever no chills. No cough or sputum production. Denied any headache or dizziness or lightheadedness. EKG showed sinus rhythm with PVCs Chest x-ray showed there is decreased inspiration compared to last exam with mild bibasilar pulmonary infiltrate/atelectasis Magnesium 1.6, sodium 136 Albumin 1.4 04/18/2019 Patient is currently lying in the bed. Hard of hearing. Nausea is improving. Patient is able to eat lunch today. No commerce of chest pain or shortness of breath.. Seen by psychiatric. Patient has been afebrile. Possible discharge soon. Current medications reviewed. 04/19/2019 Patient is currently sitting up in bed eating lunch and appears to be in no acute distress. Patient asked if I could stand at the left side of the bed while talking as he is extremely hard of hearing. Nursing staff notified sheet writer of 11 runs of V. tach this morning. Patient denies any chest pain, shortness of breath, or palpitations at this time. EKG, troponin, and cardiology consult was ordered. Patient is refusing all labs and states that he is not having chest pain. Case management and social work are following as patient may need a guardian as there are some underlying developmental disability or mental health issues and patient does not appear to be able to make his own medical decisions at this time. Psychiatry is following. 04/20/2019 Patient is lying in bed completely covered with his blanket over his head and appears to be in no acute distress. 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 Patient also stated that multiple times during conversation "that was another person talking within me". Psychiatry was called and asked to reevaluate the patient as patient needs inpatient psychiatry. Currently patient is denying any chest pain or palpitations. Patient states with when he is up and walking he gets short of breath. Patient is afebrile. Patient denies any nausea or vomiting and is tolerating diet. Per nursing staff bowel movement today was loose. 04/21/2019 Overnight events patient is more cooperative now compared to yesterday and day before. Patient is sitting in the bed and eating his lunch when I evaluated the patient. Awaiting guardianship after which his disposition will be decided 04/22/2019 Already events patient Seroquel is being increased awaiting disposition and guardianship. 04/23/2019 and the patient is being discharged today to home with his family and home care patient will not require any subacute rehabilitation patient apparently can get guardianship has outpatient the process was initiated PHYSICAL EXAMINATION: GENERAL: The patient is alert and oriented x3, not in any acute distress. Thin built HEENT: Pupils are round and equally reacting to light. EOMI. No scleral icterus. No conjunctival pallor. Normocephalic, atraumatic. No pharyngeal erythema. No thyromegaly. CARDIOVASCULAR: S1 and S2 present. No murmurs, rubs, or gallops. PULMONARY: Chest is clear to auscultation, no wheezing or crackles. ABDOMEN: Soft, nontender, nondistended, normoactive bowel sounds. No palpable organomegaly. MUSCULOSKELETAL: No joint swelling or deformity. EXTREMITIES: No cyanosis, clubbing, or pedal edema. NEUROLOGICAL: Gross neurological examination did not reveal any focal deficits. SKIN: No rashes. Assessment and Plan Plan: Intractable nausea vomiting and diarrhea and possible gastroenteritis. Improved now. Patient is tolerating diet gastroenteritis resolved Hypovolemic hyponatremia resolved Hypomagnesemia Moderate to severe protein calorie malnutrition Deafness/eating disorder Cognitive impairment -Acute psychosis which improved at this time patient still cannot make decision for himself awaiting guardianship . Patient is on Seroquel at this time. Ongoing nicotine addiction. Currently everyday smoker Patient Condition at Discharge: Stable Plan - Discharge Summary Discharge Rx Participant: Yes New Discharge Prescriptions: New QUEtiapine [SEROquel] 25 mg PO DAILY #30 tab QUEtiapine [SEROquel] 50 mg PO HS #30 tab Metoprolol Succinate (ER) [Toprol XL] 25 mg PO DAILY #30 tab.er.24h Omeprazole [PriLOSEC] 40 mg PO AC-BRKFST #14 capsule. Discharge Medication List Metoprolol Succinate (ER) [Toprol XL] 25 mg PO DAILY #30 tab.er.24h 04/23/19 [Rx] Omeprazole [PriLOSEC] 40 mg PO AC-BRKFST #14 capsule. 04/23/19 [Rx] QUEtiapine [SEROquel] 25 mg PO DAILY #30 tab 04/23/19 [Rx] QUEtiapine [SEROquel] 50 mg PO HS #30 tab 04/23/19 [Rx] Follow up Appointment(s)/Referral(s): Ibis Suarez MD [REFERRING] - 1 Week Discharge Disposition: HOME WITH HOME HEALTH SERVICES
--- NOTE | 2019-04-27 08:01 | CDI ---
Documentation Clarification Form Date: 04/27/19 From: Zuleyma Washington Phone: If you have a question about this query, please contact Payton Mcdonald, Vending Machine Refiller at [phone] between 8am and 5pm. Admit Date: 04/16/19 Discharge Date: 04/23/19 Patient Name: Marco A Madrid Visit Number: [id number] ATTENTION: The Clinical Documentation Specialists (CDI) and [facility] Coding Staff appreciate your assistance in clarifying documentation. Please respond to the clarification below the line at the bottom and electronically sign. The CDI & [facility] Coding staff will review the response and follow-up if needed. Please note: Queries are made part of the Legal Health Record. If you have any questions, please contact the author of this message via ITS. Dear Dr. Richelle Crocker, Moderate to severe protein calorie malnutrition has been documented in H&P, all PNs and DS. History/Risk Factors: gastroenteritis, hyponatremia, V tach, acute psychosis, hypomagnesemia, dehydration Clinical Indicators: frail/thin, diffuse atrophy muscles and 2+ pitting edema bilateral lower extremities Total protein: 4.2, 3.8 Albumin: 1.6, 1.4 Current BMI: 16.2 Insufficient energy intake: Weight Loss: patient refused to talk to dietitian Treatment: IV fluids w potassium, magnesium Dietary Consult: yes Supplements: Ensure Enlive BID, Magic cup once daily as trial PPN/TPN: none Lab monitoring: BMP daily In your professional opinion, can you please clarify if the patient had moderate vs severe protein calorie malnutrition? Moderate Protein-Calorie Malnutrition Severe Protein-Calorie Malnutrition Other condition, please specify Unable to determine Moderate Protein-Calorie Malnutrition MTDD
== END 2019-04-23 18:00 | disposition home or self-care (01) | DRG 392 ==
LOC: EC 21:27 → OBSVTOIN 23:55 → 4SSUR 23:55
PROVIDERS: ADMIT Hospitalist; ATTEND Hospitalist
DX: K52.9 Noninfective gastroenteritis and colitis, unspecified (principal); E87.1 Hypo-osmolality and hyponatremia; E44.0 Moderate protein-calorie malnutrition; I47.2 Ventricular tachycardia; J98.11 Atelectasis; F23 Brief psychotic disorder; Z68.1 Body mass index [BMI] 19.9 or less, adult; F50.9 Eating disorder, unspecified; R54 Age-related physical debility; E86.0 Dehydration; I49.3 Ventricular premature depolarization; F17.200 Nicotine dependence, unspecified, uncomplicated; E86.1 Hypovolemia; E83.42 Hypomagnesemia; N28.9 Disorder of kidney and ureter, unspecified; G47.00 Insomnia, unspecified; H91.90 Unspecified hearing loss, unspecified ear; Z90.49 Acquired absence of other specified parts of digestive tract; Z98.890 Other specified postprocedural states; Z59.0 Homelessness
CPT/HCPCS: 36415; 71045; 80048; 80053; 82550; 83605; 83735; 84100; 84439; 84443; 84484; 85025; 85610; 85730; 93005; 93306; 96361; 96365; 99285